=== PATIENT | female | born 1940 | race Caucasian/White ===

== ENCOUNTER 2016-09-13 13:50 | Inpatient (IN) | payer OTHER, MEDICARE ==
[2016-09-13] VITALS (7 sets, daily range): BP systolic 139–191; BP diastolic 82–97; PULSE 82–103; RESP 18–20; TEMP 96–97.1; O2SAT 95–100
[~2016-09-13] VITALS: Ht 149.9 cm; Wt 49.7 kg
[~2016-09-13 13:50] MED LIST: ASPI81TA45 PO; DICY20TA10 PO; HYDR-3533 PO; LABE100T2 PO; LOPE2 PO; LOVA40TA PO
[2016-09-13] MEDS ORDERED: SODIUM CHLOR 0.9% 1000 ML INJ 1,000 ML IV ONE (14:15)
[2016-09-13] MEDS ORDERED: MORPHINE SULFATE 4 MG/ML INJ IV PUSH ONE (14:15)
[2016-09-13] MEDS ORDERED: SODIUM CHLORIDE 0.9% FLUSH 5 ML FLUSH IV FLUSH PRN (14:15)
[2016-09-13 14:38] LABS: AUTOMATED NEUTROPHIL # 12.4 TH/MM3 (1.8-7.7); BASOPHIL # 0.1 TH/MM3 (0-0.2); BASOPHIL % 0.6 % (0.0-2.0); EOSINOPHIL % 0.2 % (0.0-4.0); HEMATOCRIT 44.3 % (35.0-46.0); LYMPH % 10.3 % (9.0-44.0); LYMPHOCYTE # 1.5 TH/MM3 (1.0-4.8); MEAN CELL VOLUME 94.9 FL (80.0-100.0); MEAN CORPUSCULAR HGB CONC 33.7 % (32.0-36.0); MONO % 4.4 % (0.0-8.0); NEUT % 84.5 % (16.0-70.0); PLATELET COUNT 186 TH/MM3 (150-450); RED BLOOD COUNT 4.67 MIL/MM3 (4.00-5.30); RED CELL DISTRIBUTION WIDTH 13.6 % (11.6-17.2); WHITE BLOOD COUNT 14.6 TH/MM3 (4.0-11.0)
[2016-09-13 14:50] LABS: APTT (PATIENT) 26.4 SEC (24.3-30.1); PROTHROMBIN TIME - PATIENT 11.4 SEC (9.8-11.6)
[2016-09-13 15:02] LABS: HEMO FLAGS DIFF FINAL
--- NOTE | 2016-09-13 15:08 | RADRPT ---
EXAM DATE/TIME: 09/13/2016 14:29 [facility] COMPARISON: CT BRAIN W/O CONTRAST, August 06, 2015, 13:12. INDICATIONS : Altered mental status. Fell last night. RADIATION DOSE: 57.49 CTDIvol (mGy) MEDICAL HISTORY : Hypertension. Cardiovascular disease SURGICAL HISTORY : Appendectomy. Hysterectomy. ENCOUNTER: Initial ACUITY: 1 day PAIN SCALE: 0/10 LOCATION: cranial TECHNIQUE: Multiple contiguous axial images were obtained of the head. Using automated exposure control and adj ustment of the mA and/or kV according to patient size, radiation dose was kept as low as reasonably a chievable to obtain optimal diagnostic quality images. DICOM format image data is available electro nically for review and comparison. FINDINGS: CEREBRUM: There is generalized cerebral atrophy. Ventricles are normal in size. There is moderate to severe per iventricular white matter low attenuation. There are 2 old lacune seen in the left thalamus. One of t hese is new since the prior examination. No midline shift, mass lesion, hemorrhage or acute infarcti on. No extra-axial fluid collections are seen. POSTERIOR FOSSA: The cerebellum and brainstem demonstrate no acute finding. There is a focal area of low density in th e right cerebellum likely representing old area of ischemia. The 4th ventricle is midline. The cere bellopontine angle is unremarkable. EXTRACRANIAL: Visualized sinuses are clear. SKULL: The calvaria is intact. No evidence of skull fracture. CONCLUSION: 1. No acute intracranial abnormality is identified. 2. Chronic changes include generalized atrophy and moderate to severe periventricular white matter lo w attenuation characteristic of chronic microvascular ischemia. There are old lacunes in the left eliud lamus, one of which is new since the July 2015 exam. Juan R Delatorre MD on September 13, 2016 at 15:03 Board Certified Radiologist. This report was verified electronically.
[2016-09-13 15:26] LABS: ANION GAP 10 MEQ/L (5-15); BICARBONATE 30.4 MEQ/L (21.0-32.0); BLOOD UREA NITROGEN 18 MG/DL (7-18); CHLORIDE 99 MEQ/L (98-107); CREATINE KINASE 66 U/L (26-192); GLOMERULAR FILTRATION RATE 54 ML/MIN (>89); SODIUM (NA) 139 MEQ/L (136-145)
[2016-09-13 15:28] LABS: POTASSIUM 1.9 MEQ/L (3.5-5.1)
[2016-09-13 15:29] LABS: AMPHETAMINE, URINE NEG (NEG); BARBITURATES, URINE NEG (NEG); BLOOD, URINE NEG (NEG); GLUCOSE,URINE NEG (NEG); KETONE, URINE NEG (NEG); PH, URINE 5.5 (5.0-8.5)
[2016-09-13] MEDS ORDERED: POTASSIUM CHLORIDE 10 MEQ CONTROLLED RELEASE TAB PO ONE (15:30)
[2016-09-13 15:33] LABS: COCAINE, URINE NEG (NEG)
--- NOTE | 2016-09-13 15:34 | PD ---
HPI Chief Complaint: General Weakness Time Seen by Provider: 14:08 Travel History International Travel<30 days: No Contact w/Intl Traveler<30days: No Traveled to known affect area: No History of Present Illness HPI Patient is a 75-year-old male comes in with her due to weakness. She did fall and is complaining of right shoulder pain. Otherwise, she has no complaints. She is confused, and cannot provide much history. Her states that for several months she seems to be getting more and more forgetful. He says that she has become so weak that she can't get out of bed. He says that she says she fell at the bottom of the stairs last night, but he did not witness it as he was out walking the dog. She has not been complaining of anything specific at home other than the shoulder pain after she fell last night. PFSH Past Medical History Hx Anticoagulant Therapy: Yes Cardiovascular Problems: Yes (CAD WITH STENT PLACEMENT) High Cholesterol: Yes Coronary Artery Disease: Yes Diminished Hearing: No GERD: Yes Hypertension: Yes Immunizations Current: Yes Menopausal: Yes Past Surgical History Appendectomy: Yes Coronary Stent: Yes Gynecologic Surgery: Yes (bladder repair) Hysterectomy: Yes Social History Alcohol Use: Yes Tobacco Use: Yes (1 PPD) Substance Use: No Allergies-Medications (Allergen,Severity, Reaction): Coded Allergies: No Known Allergies (Verified , 09/13/16) Reported Meds & Prescriptions Reported Meds & Active Scripts Active No Active Prescriptions or Reported Medications Review of Systems ROS Limitations: Altered Mental Status Physical Exam Narrative GENERAL: Awake and alert, in no acute distress. Smells of urine. SKIN: Focused skin assessment warm/dry. HEAD: Atraumatic. Normocephalic. EYES: Pupils equal and round. No scleral icterus. Extraocular movements intact. ENT: Mucous membranes pink and moist. NECK: Trachea midline. No JVD. CARDIOVASCULAR: Regular rate and rhythm. No murmur appreciated. RESPIRATORY: No accessory muscle use. Clear to auscultation. Breath sounds equal bilaterally. GASTROINTESTINAL: Abdomen soft, non-tender, nondistended. MUSCULOSKELETAL: No clubbing. No cyanosis. No edema. Ecchymosis to the right shoulder. Pain with movement. Tender to palpation of the shoulder and humerus. Radial pulse intact. NEUROLOGICAL: Awake and alert, oriented to person and place. She believes it is 1980. No obvious cranial nerve deficits. Motor grossly within normal limits. Normal speech. PSYCHIATRIC: Appropriate mood and affect; insight and judgment normal. Data Data Last Documented VS Vital Signs Date Time Temp Pulse Resp B/P Pulse Ox O2 Delivery O2 Flow Rate FiO2 09/13/16 16:50 97 20 191/97 97 09/13/16 13:56 97.1 Orders Electrocardiogram (09/13/16 14:15) Basic Metabolic Panel (Bmp) (09/13/16 14:15) Complete Blood Count With Diff (09/13/16 14:15) Creatine Kinase (Cpk) (09/13/16 14:15) Prothrombin Time / Inr (Pt) (09/13/16 14:15) Act Partial Throm Time (Ptt) (09/13/16 14:15) Troponin I (09/13/16 14:15) Thyroid Stimulating Hormone (09/13/16 14:15) Urinalysis - C+S If Indicated (09/13/16 14:15) Ua Includes Microscopic (09/13/16 14:15) Chest, Pa & Lat (09/13/16 14:15) Ct Brain W/O Iv Contrast(Rout) (09/13/16 14:15) Blood Glucose (09/13/16 14:15) Ecg Monitoring (09/13/16 14:15) Iv Access Insert/Monitor (09/13/16 14:15) Cath For Specimen (09/13/16 14:15) Oximetry (09/13/16 14:15) Sodium Chloride 0.9% Flush (Ns Flush) (09/13/16 14:15) Drug Screen, Random Urine (09/13/16 14:15) Alcohol (Ethanol) (09/13/16 14:15) Humerus (Min 2vws) (09/13/16 ) Sodium Chlor 0.9% 1000 Ml Inj (Ns 1000 M (09/13/16 14:15) Morphine Inj (Morphine Inj) (09/13/16 14:15) Potassium Chlor 10 Meq Premix (Kcl 10 Me (09/13/16 15:30) Potassium Chloride (Kcl) (09/13/16 15:30) Potassium Chloride (Kcl) (09/13/16 15:45) Urine Culture (09/13/16 15:00) Ceftriaxone Inj (Rocephin Inj) (09/13/16 15:45) Shoulder, Limited(2vws) (09/13/16 ) Support Splint (09/13/16 16:25) Admit Order (Ed Use Only) (09/13/16 ) Labs Laboratory Tests Test 09/13/16 09/13/16 14:30 15:00 White Blood Count 14.6 TH/MM3 Red Blood Count 4.67 MIL/MM3 Hemoglobin 14.9 GM/DL Hematocrit 44.3 % Mean Corpuscular Volume 94.9 FL Mean Corpuscular Hemoglobin 32.0 PG Mean Corpuscular Hemoglobin 33.7 % Concent Red Cell Distribution Width 13.6 % Platelet Count 186 TH/MM3 Mean Platelet Volume 9.1 FL Neutrophils (%) (Auto) 84.5 % Lymphocytes (%) (Auto) 10.3 % Monocytes (%) (Auto) 4.4 % Eosinophils (%) (Auto) 0.2 % Basophils (%) (Auto) 0.6 % Neutrophils # (Auto) 12.4 TH/MM3 Lymphocytes # (Auto) 1.5 TH/MM3 Monocytes # (Auto) 0.6 TH/MM3 Eosinophils # (Auto) 0.0 TH/MM3 Basophils # (Auto) 0.1 TH/MM3 CBC Comment DIFF FINAL Differential Comment Prothrombin Time 11.4 SEC Prothromb Time International 1.0 RATIO Ratio Activated Partial 26.4 SEC Thromboplast Time Sodium Level 139 MEQ/L Potassium Level 1.9 MEQ/L Chloride Level 99 MEQ/L Carbon Dioxide Level 30.4 MEQ/L Anion Gap 10 MEQ/L Blood Urea Nitrogen 18 MG/DL Creatinine 1.00 MG/DL Estimat Glomerular Filtration 54 ML/MIN Rate Random Glucose 145 MG/DL Calcium Level 8.6 MG/DL Total Creatine Kinase 66 U/L Troponin I LESS THAN 0.02 NG/ML Thyroid Stimulating Hormone 2.060 uIU/ML 3rd Gen Ethyl Alcohol Level LESS THAN 3 MG/DL Urine Color YELLOW Urine Turbidity CLEAR Urine pH 5.5 Urine Specific [place] 1.016 Urine Protein NEG mg/dL Urine Glucose (UA) NEG mg/dL Urine Ketones NEG mg/dL Urine Occult Blood NEG Urine Nitrite POS Urine Bilirubin NEG Urine Leukocyte Esterase NEG Urine RBC 0-3 /hpf Urine WBC 6-8 /hpf Urine Squamous Epithelial 0-5 /hpf Cells Urine Bacteria MANY /hpf Urine Hyaline Casts 3-5 /lpf Microscopic Urinalysis Comment CATH-CULTURE IND Urine Opiates Screen NEG Urine Barbiturates Screen NEG Urine Amphetamines Screen NEG Urine Benzodiazepines Screen NEG Urine Cocaine Screen NEG Urine Cannabinoids Screen NEG MDM Medical Decision Making Medical Screen Exam Complete: Yes Emergency Medical Condition: Yes Medical Record Reviewed: Yes Interpretation(s) ECG shows sinus rhythm at 89, no ST elevation or depression, T-wave inversion in lead V2, occasional PVCs. Differential Diagnosis UTI versus electrolyte abnormality versus dementia versus infection versus shoulder fracture Narrative Course Patient is a 75-year-old female who comes in due to weakness and worsening mental status. Exam shows ecchymosis and pain to the right shoulder. IV established, labs sent. Labs show a white blood cell count of 14.6. Potassium is 1.9. Potassium was supplemented. Urinalysis is positive for UTI. She is given Rocephin. Shoulder x-ray shows a comminuted fracture of the right humeral head. I spoke with Dr. Moore of orthopedics regarding this, he suggests sling and swath and Dr. Dyer will see her in the morning. Patient will be admitted for further management. Diagnosis Primary Impression: Hypokalemia Additional Impressions: Humeral fracture Qualified Code: S42.291A - Other closed displaced fracture of proximal end of right humerus, initial encounter UTI (urinary tract infection) Qualified Code: N30.00 - Acute cystitis without hematuria Admitting Information Admitting Physician Requests: Admit Scripts No Active Prescriptions or Reported Meds Caryn Rodgers MD Sep 13, 2016 15:34
[2016-09-13 15:36] LABS: NITRITE,URINE POS (NEG)
[2016-09-13 15:38] LABS: URINE COLOR YELLOW (YELLW/STRAW)
[2016-09-13 15:39] LABS: BACTERIA, URINE MANY /hpf; COMMENT (UR) CATH-CULTURE IND; CULTURE IF INDICATED CATH CULTURE IND; RBC, URINE 0-3 /hpf (0-3); SQUAMOUS EPITHELIAL CELL URINE 0-5 /hpf (0-5)
[2016-09-13] MEDS: POTASSIUM CHLOR 10 MEQ PREMIX 100 ML IV SCH ×3 (15:40→18:30)
[2016-09-13] MEDS ORDERED: cefTRIAXone INJ 1,000 MG in SODIUM CHLORIDE 0.9% INJ 100 ML IV ONE (15:45)
[2016-09-13] MEDS ORDERED: POTASSIUM CHLORIDE 20 MEQ CONTROLLED RELEASE TAB PO ONE (15:45)
--- NOTE | 2016-09-13 16:31 | RADRPT ---
EXAM DATE/TIME: 09/13/2016 15:55 [facility] COMPARISON: HUMERUS RIGHT (MIN 2VWS), September 13, 2016, 15:58. INDICATIONS : Short of breath. MEDICAL HISTORY : Hypertension. Cardiovascular disease. Smoker. SURGICAL HISTORY : Appendectomy. Hysterectomy. ENCOUNTER: Initial ACUITY: 1 week PAIN SCORE: 0/10 LOCATION: Bilateral chest FINDINGS: Frontal and lateral views of the chest demonstrate a normal-sized cardiac silhouette with calcificati on of aorta. No effusion, consolidation, or pneumothorax is identified. There is a fracture of the ri ght proximal humerus in the surgical neck region. CONCLUSION: 1. No acute cardiopulmonary abnormality is identified. 2. There is an acute right proximal humerus fracture. Please refer to humerus x-ray report for furthe r description. Juan R Delatorre MD on September 13, 2016 at 16:29 Board Certified Radiologist. This report was verified electronically.
--- NOTE | 2016-09-13 16:50 | RADRPT ---
EXAM DATE/TIME: 09/13/2016 15:58 [facility] COMPARISON: No previous studies available for comparison. INDICATIONS : Right humerus pain after fall one week ago. MEDICAL HISTORY : None. SURGICAL HISTORY : None. ENCOUNTER: Initial ACUITY: 1 week PAIN SCORE: 10/10 LOCATION: Right proximal humerus FINDINGS: As the comminuted fracture of the surgical neck of the humerus. The greater tuberosity is separate f ragment. The aorta acromium are intact. CONCLUSION: Committed fracture of the humeral head. Tevin Taylor MD FACR on September 13, 2016 at 16:48 Board Certified Radiologist. This report was verified electronically.
--- NOTE | 2016-09-13 16:51 | RADRPT ---
EXAM DATE/TIME: 09/13/2016 16:03 [facility] COMPARISON: No previous studies available for comparison. INDICATIONS : Right shoulder pain after fall one week ago. MEDICAL HISTORY : None. SURGICAL HISTORY : None. ENCOUNTER: Initial ACUITY: 1 week PAIN SCORE: 10/10 LOCATION: Right proximal shoulder FINDINGS: Again seen is the comminuted fracture the humeral head. Glenoid and acromion are intact. Lung apex is clear. CONCLUSION: Continued fracture humeral head. Tevin Taylor MD FACR on September 13, 2016 at 16:48 Board Certified Radiologist. This report was verified electronically.
[2016-09-13] MEDS ORDERED: ACETAMINOPHEN 325 MG TAB PO PRN (17:30)
--- NOTE | 2016-09-13 17:42 | HHI.HP ---
[facility] Tim Leonard MD Admission Diagnosis Hypokalemia, UTI, AMS, humerus fracture Diagnoses: Chief Complaint: weakness Travel History International Travel<30 Days: No Contact w/Intl Traveler <30 Da: No Traveled to Known Affected Are: No Sepsis Criteria SIRS Criteria (2 or more): Heart rate over 90, WBC > 70262, < 4000 or > 10% bands Criteria Outcome: Meets sepsis criteria History of Present Illness Sent is a 75-year-old female with minimal past medical history although she admits having a cardiac event at some point in having a stent. She does not follow up with any doctors in fact has had several points with doctors which she has canceled in the last 6 weeks. Patient has come in with increased weakness and fall at home which she sustained a right humeral fracture. She is more confused and the significant other who lives with her sister she's had urinary incontinence and chills as well as fecal incontinence over the last 2 weeks. The patient has not had any recent travel but has had difficulty sleeping. She presented to the emergency room with evidence of urinary tract infection, leukocytosis and tachycardia and meets sepsis criteria. Patient also has hypokalemia of 1.9. She has not been eating and has had poor appetite over the last several weeks as well. Patient admitted to the hospital for further evaluation and treatment Review of Systems Constitutional: DENIES: Diaphoretic episodes, Fatigue, Fever, Weight gain, Weight loss, Chills, Dizziness, Change in appetite, Night Sweats Endocrine: DENIES: Abnorml menstrual pattern, Heat/cold intolerance, Polydipsia , Polyuria, Polyphagia Eyes: DENIES: Blurred vision, Diplopia, Eye inflammation, Eye pain, Vision loss , Photosensitivity, Double Vision Ears, nose, mouth, throat: DENIES: Tinnitus, Hearing loss, Vertigo, Nasal discharge, Oral lesions, Throat pain, Hoarseness, Ear Pain, Running Nose, Epistaxis, Sinus Pain, Toothache, Odynophagia Respiratory: DENIES: Apneas, Cough, Snoring, Wheezing, Hemoptysis, Sputum production, Shortness of breath Cardiovascular: DENIES: Chest pain, Palpitations, Syncope, Dyspnea on Exertion , PND, Lower Extremity Edema, Orthopnea, Claudication Gastrointestinal: COMPLAINS OF: Diarrhea, DENIES: Abdominal pain, Black stools , Bloody stools, Constipation, Nausea, Vomiting, Difficulty Swallowing, Anorexia Genitourinary: COMPLAINS OF: Urinary frequency, Urinary incontinence, DENIES: Abnormal vaginal bleeding, Dysmenorrhea, Dyspareunia, Sexual dysfunction, Urgency, Hematuria, Dysuria, Nocturia, Vaginal discharge Musculoskeletal: COMPLAINS OF: Joint pain (right ), DENIES: Muscle aches, Stiffness, Joint Swelling, Back pain, Neck pain Integumentary: DENIES: Abnormal pigmentation, Pruritus, Rash, Nail changes, Breast masses, Breast skin changes, Nipple discharge Hematologic/lymphatic: DENIES: Bruising, Lymphadenopathy Immunologic/allergic: DENIES: Eczema, Urticaria Neurologic: DENIES: Abnormal gait, Headache, Localized weakness, Paresthesias, Seizures, Speech Problems, Tremor, Poor Balance Psychiatric: COMPLAINS OF: Confusion, DENIES: Anxiety, Mood changes, Depression, Hallucinations, Agitation, Suicidal Ideation, Homicidal Ideation, Delusions Except as stated in HPI: all other systems reviewed are Neg Past Family Social History Past Medical History CAD Past Surgical History stent Reported Medications none Allergies: Coded Allergies: No Known Allergies (Verified , 09/13/16) Active Ordered Medications reviewed in the EMR Family History mom and dad of old age Social History lives with SO 1 ppd tobacco EtOH daily Physical Exam Vital Signs Vital Signs Date Time Temp Pulse Resp B/P Pulse Ox O2 Delivery O2 Flow Rate FiO2 09/13/16 16:50 97 20 191/97 97 09/13/16 15:35 89 20 174/84 100 09/13/16 15:03 96 09/13/16 13:56 97.1 103 18 146/82 96 Physical Exam GENERAL: This is a well-nourished, well-developed patient, in no apparent distress. SKIN: No rashes, ecchymoses or lesions. Cool and dry. HEAD: Atraumatic. Normocephalic. No temporal or scalp tenderness. EYES: Pupils equal round and reactive. Extraocular motions intact. No scleral icterus. No injection or drainage. ENT: Nose without bleeding, purulent drainage or septal hematoma. Throat without erythema, tonsillar hypertrophy or exudate. Uvula midline. Airway patent. NECK: Trachea midline. No JVD or lymphadenopathy. Supple, nontender, no meningeal signs. CARDIOVASCULAR: Regular rate and rhythm without murmurs, gallops, or rubs. RESPIRATORY: Clear to auscultation. Breath sounds equal bilaterally. No wheezes , rales, or rhonchi. GASTROINTESTINAL: Abdomen soft, non-tender, nondistended. No hepato-splenomegaly , or palpable masses. No guarding. MUSCULOSKELETAL: Extremities without clubbing, cyanosis, or edema. No joint tenderness, effusion, or edema noted. No calf tenderness. Negative Homans sign bilaterally. NEUROLOGICAL: Awake and alert. Cranial nerves II through XII intact. Motor and sensory grossly within normal limits. Five out of 5 muscle strength in all muscle groups. Normal speech. Laboratory Laboratory Tests Test 09/13/16 09/13/16 14:30 15:00 White Blood Count 14.6 Red Blood Count 4.67 Hemoglobin 14.9 Hematocrit 44.3 Mean Corpuscular Volume 94.9 Mean Corpuscular Hemoglobin 32.0 Mean Corpuscular Hemoglobin 33.7 Concent Red Cell Distribution Width 13.6 Platelet Count 186 Mean Platelet Volume 9.1 Neutrophils (%) (Auto) 84.5 Lymphocytes (%) (Auto) 10.3 Monocytes (%) (Auto) 4.4 Eosinophils (%) (Auto) 0.2 Basophils (%) (Auto) 0.6 Neutrophils # (Auto) 12.4 Lymphocytes # (Auto) 1.5 Monocytes # (Auto) 0.6 Eosinophils # (Auto) 0.0 Basophils # (Auto) 0.1 CBC Comment DIFF FINAL Differential Comment Prothrombin Time 11.4 Prothromb Time International 1.0 Ratio Activated Partial 26.4 Thromboplast Time Sodium Level 139 Potassium Level 1.9 Chloride Level 99 Carbon Dioxide Level 30.4 Anion Gap 10 Blood Urea Nitrogen 18 Creatinine 1.00 Estimat Glomerular Filtration 54 Rate Random Glucose 145 Calcium Level 8.6 Total Creatine Kinase 66 Troponin I LESS THAN 0.02 Thyroid Stimulating Hormone 2.060 3rd Gen Ethyl Alcohol Level LESS THAN 3 Urine Color YELLOW Urine Turbidity CLEAR Urine pH 5.5 Urine Specific [place] 1.016 Urine Protein NEG Urine Glucose (UA) NEG Urine Ketones NEG Urine Occult Blood NEG Urine Nitrite POS Urine Bilirubin NEG Urine Leukocyte Esterase NEG Urine RBC 0-3 Urine WBC 6-8 Urine Squamous Epithelial 0-5 Cells Urine Bacteria MANY Urine Hyaline Casts 3-5 Microscopic Urinalysis Comment CATH-CULTURE IND Urine Opiates Screen NEG Urine Barbiturates Screen NEG Urine Amphetamines Screen NEG Urine Benzodiazepines Screen NEG Urine Cocaine Screen NEG Urine Cannabinoids Screen NEG Date/Time Procedure Status Source Growth 09/13/16 15:00 Urine Culture Received Urine Catheterized Urine Pending Result Diagram: 09/13/16 1430 09/13/16 1430 Assessment and Plan Problem List: (1) Hypokalemia ICD Code: E87.6 Status: Acute Plan: add mag replace, follow trend 60 meq in ER (2) Diarrhea ICD Code: R19.7 Status: Acute Plan: loose stools Work up in progress (3) Humeral fracture ICD Code: S42.309A Status: Acute Plan: sling per ortho, will see in am (4) UTI (urinary tract infection) ICD Code: N39.0 Status: Acute Plan: Sepsis (hr and leukocytosis) Rocephin empiric, follow cultures (5) Weakness ICD Code: R53.1 Status: Acute (6) HTN (hypertension) ICD Code: I10 Status: Acute Plan: clonidine prn may need chronic therapy Physician Certification 2 Midnight Certification Type: Admission for Inpatient Services Order for Inpatient Services The services are ordered in accordance with Medicare regulations or non- Medicare payer requirements, as applicable. In the case of services not specified as inpatient-only, they are appropriately provided as inpatient services in accordance with the 2-midnight benchmark. Estimated LOS (days): 3 3 days is the estimated time the patient will need to remain in the hospital, assuming treatment plan goals are met and no additional complications. Post-Hospital Plan: Deann Chang MD Sep 13, 2016 17:41
[2016-09-13] MEDS: cloNIDine HCL 0.1 MG TAB PO PRN (18:05)
[2016-09-13] MEDS ORDERED: MORPHINE SULFATE 4 MG/ML INJ IV PUSH PRN (18:30)
[2016-09-13] MEDS: SODIUM CHLOR 0.9% 1000 ML INJ 1,000 ML IV SCH (18:31)
[2016-09-13] MEDS: ENOXAPARIN SODIUM 40 MG/0.4 ML SYRINGE SQ SCH (18:31)
[2016-09-13 22:23] LABS: BICARBONATE 27.7 MEQ/L (21.0-32.0); MAGNESIUM 1.8 MG/DL (1.5-2.5)
[2016-09-13 22:25] LABS: POTASSIUM 2.4 MEQ/L (3.5-5.1)
[2016-09-13] MEDS ORDERED: MAGNESIUM SULFATE 1 GM PREMIX 100 ML IV SCH (22:45)
[2016-09-13] MEDS ORDERED: POTASSIUM CHLORIDE 25 MEQ EFFERVESCENT TAB PO ONE (22:45)
[2016-09-13 22:47] LABS: CALCIUM-PROTEIN CORRECTED 8.5 MG/DL (8.5-10.1)
[2016-09-13] MEDS: POTASSIUM CHLOR 20 MEQ PREMIX 100 ML IV SCH (23:50)
[2016-09-14] VITALS: BP 150/88; PULSE 85; RESP 20; TEMP 97.5; O2SAT 92
[2016-09-14] MEDS: SODIUM CHLOR 0.9% 1000 ML INJ 1,000 ML IV SCH ×3 (04:30→23:19)
[2016-09-14] MEDS: POTASSIUM CHLOR 20 MEQ PREMIX 100 ML IV SCH (04:30)
[2016-09-14 04:34] VITALS: BP 187/106; PULSE 87; RESP 18; TEMP 98.4; O2SAT 94
[2016-09-14] MEDS: cloNIDine HCL 0.1 MG TAB PO PRN ×2 (04:40→20:26)
[2016-09-14 05:58] LABS: AUTOMATED NEUTROPHIL # 8.5 TH/MM3 (1.8-7.7); BASOPHIL % 0.4 % (0.0-2.0); EOSINOPHIL # 0.1 TH/MM3 (0-0.4); EOSINOPHIL % 1.3 % (0.0-4.0); HEMATOCRIT 35.4 % (35.0-46.0); LYMPH % 14.1 % (9.0-44.0); LYMPHOCYTE # 1.5 TH/MM3 (1.0-4.8); MEAN CORPUSCULAR HEMOGLOBIN 31.4 PG (27.0-34.0); MONO % 3.3 % (0.0-8.0); NEUT % 80.9 % (16.0-70.0); PLATELET COUNT 127 TH/MM3 (150-450); RED BLOOD COUNT 3.73 MIL/MM3 (4.00-5.30); RED CELL DISTRIBUTION WIDTH 13.3 % (11.6-17.2); WHITE BLOOD COUNT 10.4 TH/MM3 (4.0-11.0)
[2016-09-14 06:08] LABS: HEMO FLAGS DIFF FINAL
[2016-09-14 06:12] LABS: BICARBONATE 28.1 MEQ/L (21.0-32.0); POTASSIUM 3.9 MEQ/L (3.5-5.1)
[2016-09-14 06:26] LABS: CALCIUM-PROTEIN CORRECTED 8.6 MG/DL (8.5-10.1)
[2016-09-14 08:42] VITALS: BP 158/88; PULSE 74; RESP 19; TEMP 96.9; O2SAT 96
[2016-09-14] MEDS: PANTOPRAZOLE SOD 40 MG DELAYED RELEASE TAB PO SCH (09:23)
--- NOTE | 2016-09-14 11:59 | HHI.PR ---
Subjective Remarks Pt having pain in her right upper extremity. otherwise no nausea/vomiting/cp/ sob. Objective Vitals Vital Signs Date Time Temp Pulse Resp B/P Pulse Ox O2 Delivery O2 Flow Rate FiO2 09/14/16 08:42 96.9 74 19 158/88 96 09/14/16 04:34 98.4 87 18 187/106 94 09/14/16 00:00 97.5 85 20 150/88 92 09/13/16 22:00 89 09/13/16 20:00 96.0 82 20 139/89 96 09/13/16 18:15 96.8 93 20 95 09/13/16 16:50 97 20 191/97 97 09/13/16 15:35 89 20 174/84 100 09/13/16 15:03 96 09/13/16 13:56 97.1 103 18 146/82 96 I/O 09/13/16 09/13/16 09/13/16 09/14/16 09/14/16 09/14/16 06:59 14:59 22:59 06:59 14:59 22:59 Intake Total 60 ml 1260 ml Output Total 150 ml Balance 60 ml 1110 ml Intake Oral 60 ml 60 ml IV Total 1200 ml Output Urine Total 150 ml # Voids 0 1 # Bowel Movements 0 0 Result Diagram: 09/14/16 0540 09/14/16 0540 Imaging Last Impressions Head CT 09/13/165 Signed Impressions: Service Date/Time: Tuesday, September 13, 2016 14:29 - CONCLUSION: 1. No acute intracranial abnormality is identified. 2. Chronic changes include generalized atrophy and moderate to severe periventricular white matter low attenuation characteristic of chronic microvascular ischemia. There are old lacunes in the left thalamus, one of which is new since the July 2015 exam. Juan R Delatorre MD Chest X-Ray 09/13/16 1415 Signed Impressions: Service Date/Time: Tuesday, September 13, 2016 15:55 - CONCLUSION: 1. No acute cardiopulmonary abnormality is identified. 2. There is an acute right proximal humerus fracture. Please refer to humerus x-ray report for further description. Juan R Delatorre MD Shoulder X-Ray 09/13/16 0000 Signed Impressions: Service Date/Time: Tuesday, September 13, 2016 16:03 - CONCLUSION: Continued fracture humeral head. Tevin Taylor MD FACR Humerus X-Ray 09/13/16 0000 Signed Impressions: Service Date/Time: Tuesday, September 13, 2016 15:58 - CONCLUSION: Committed fracture of the humeral head. Tevin Taylor MD FACR Objective Remarks GENERAL: This is a well-nourished, well-developed patient, in no apparent distress. EYES: Extraocular motions intact. No scleral icterus. No injection or drainage. ENT: Nose without drainage. Airway patent. NECK: Trachea midline. CARDIOVASCULAR: Regular rate and rhythm without murmurs RESPIRATORY: Clear to auscultation. No wheezes GASTROINTESTINAL: Abdomen soft, non-tender, nondistended.No guarding. MUSCULOSKELETAL: Extremities without edema. right arm in slig. able to move fingers, cap refill <2sec NEUROLOGICAL: Awake and alert. Cranial nerves II through XII intact. Normal speech. A/P Problem List: (1) Hypokalemia ICD Code: E87.6 Status: Acute (2) Diarrhea ICD Code: R19.7 Status: Acute (3) Humeral fracture ICD Code: S42.309A Status: Acute (4) UTI (urinary tract infection) ICD Code: N39.0 Status: Acute (5) Weakness ICD Code: R53.1 Status: Acute (6) HTN (hypertension) ICD Code: I10 Status: Acute Assessment and Plan (1) Hypokalemia resolved. mag normal. s/p60 meq in ER (2) Diarrhea loose stools Work up in progress (3) Humeral fracture sling per ortho,discussed w Dr. Dos Santos, he will evaluate the patient later today (4) UTI (urinary tract infection) Sepsis (hr and leukocytosis) Rocephin empiric, follow cultures which so far are pending (5) Weakness PT eval in place (6) HTN (hypertension) clonidine prn may need chronic therapy Discharge Planning f/u urine cx awaiting final recs from ortho. pain mgt f/u stool studies Problem Qualifiers (1) Humeral fracture: Qualified Code: S42.291A - Other closed displaced fracture of proximal end of right humerus, initial encounter (2) UTI (urinary tract infection): Qualified Code: N30.00 - Acute cystitis without hematuria Marianne Kurtz MD Sep 14, 2016 11:59
[2016-09-14] MEDS ORDERED: ACETAMINOPHEN/HYDROcodone 325 MG/5 MG TAB PO PRN (12:15)
[2016-09-14 13:16] VITALS: BP 179/103; PULSE 83; RESP 19; TEMP 97.8; O2SAT 96
--- NOTE | 2016-09-14 13:21 | PD.CONS ---
cc: Saw Dos Santos Jr., MD HPI Service Orthopedic Surgeons Consult Requested By Primary Care Physician Tim Leonard MD Admission Diagnosis Hypokalemia, UTI, AMS, humerus fracture Diagnoses: (1) Hypokalemia (2) Diarrhea (3) Humeral fracture (4) UTI (urinary tract infection) (5) Weakness (6) HTN (hypertension) Chief Complaint: Right shoulder pain History of Present Illness 75-year-old female with past medical history of cardiac disease comes in complaining of right shoulder playing after a fall. Prior to the fall she has felt increasingly weak. X-rays examination reveal a displaced proximal humerus fracture of the surgical neck. Denies any head injuries. Denies loss of consciousness. Patient currently in a sling. Currently patient's pain is sharp, 8 out of 10, exacerbated by any range of motion, relieved at rest and with IV pain medicine, pain is sharp nonradiating, not associated with any paresthesia and numbness to the right upper extremity. The patient has not had any recent travel but has had difficulty sleeping. She presented to the emergency room with evidence of urinary tract infection, leukocytosis and tachycardia and meets sepsis criteria. ROS - General Review of Systems Constitutional: DENIES: Diaphoretic episodes, Fatigue, Fever, Weight gain, Weight loss, Chills, Dizziness, Change in appetite, Night Sweats Endocrine: DENIES: Abnorml menstrual pattern, Heat/cold intolerance, Polydipsia , Polyuria, Polyphagia Eyes: DENIES: Blurred vision, Diplopia, Eye inflammation, Eye pain, Vision loss , Photosensitivity, Double Vision Ears, nose, mouth, throat: DENIES: Tinnitus, Hearing loss, Vertigo, Nasal discharge, Oral lesions, Throat pain, Hoarseness, Ear Pain, Running Nose, Epistaxis, Sinus Pain, Toothache, Odynophagia Respiratory: DENIES: Apneas, Cough, Snoring, Wheezing, Hemoptysis, Sputum production, Shortness of breath Cardiovascular: DENIES: Chest pain, Palpitations, Syncope, Dyspnea on Exertion , PND, Lower Extremity Edema, Orthopnea, Claudication Gastrointestinal: COMPLAINS OF: Diarrhea, DENIES: Abdominal pain, Black stools , Bloody stools, Constipation, Nausea, Vomiting, Difficulty Swallowing, Anorexia Genitourinary: COMPLAINS OF: Urinary frequency, Urinary incontinence, DENIES: Abnormal vaginal bleeding, Dysmenorrhea, Dyspareunia, Sexual dysfunction, Urgency, Hematuria, Dysuria, Nocturia, Vaginal discharge Musculoskeletal: COMPLAINS OF: Joint pain (right ), DENIES: Muscle aches, Stiffness, Joint Swelling, Back pain, Neck pain Integumentary: DENIES: Abnormal pigmentation, Pruritus, Rash, Nail changes, Breast masses, Breast skin changes, Nipple discharge Hematologic/lymphatic: DENIES: Bruising, Lymphadenopathy Immunologic/allergic: DENIES: Eczema, Urticaria Neurologic: DENIES: Abnormal gait, Headache, Localized weakness, Paresthesias, Seizures, Speech Problems, Tremor, Poor Balance Psychiatric: COMPLAINS OF: Confusion, DENIES: Anxiety, Mood changes, Depression, Hallucinations, Agitation, Suicidal Ideation, Homicidal Ideation, Delusions Except as stated in HPI: all other systems reviewed are Neg PFSH Past Family Social History Past Medical History CAD Past Surgical History stent Reported Medications none Allergies: Coded Allergies: No Known Allergies (Verified , 09/13/16) Active Ordered Medications reviewed in the EMR Family History mom and dad of old age Social History lives with SO 1 ppd tobacco EtOH daily Past Family Social History Past Medical History CAD Past Surgical History stent Allergies: Coded Allergies: No Known Allergies (Verified , 09/13/16) Active Ordered Medications Current Medications Medications (Trade) Dose Ordered Sig/Tania Route Start Time Stop Time Status Last Admin IV Flush 2 ml 2 ml UNSCH PRN IV FLUSH 09/13/16 14:15 (NS 1000 ml Inj) 1,000 ml @ 100 mls/hr Q10H IV 09/13/16 17:19 09/14/16 10:44 (Tylenol) 650 mg Q4H PRN PO 09/13/16 17:30 (Catapres) 0.1 mg Q6H PRN PO 09/13/16 17:45 09/14/16 04:40 (Protonix) 40 mg DAILY PO 09/14/16 09:00 09/14/16 09:23 Enoxaparin Sodium 40 mg 40 mg Q24H SQ 09/13/16 18:00 09/13/16 18:31 (Rocephin Inj/NS Inj) 100 ml @ 200 mls/hr Q24H IV 09/14/16 18:00 ([place] 5-325 Mg) 1 tab Q4H PRN PO 09/14/16 12:15 ([place] 10-325 Mg) 1 tab Q6H PRN PO 09/14/16 12:15 (Morphine Inj) 1 mg Q3H PRN IV PUSH 09/14/16 12:15 Reported Meds & Active Scripts Active No Active Prescriptions or Reported Medications Family History mom and dad of old age Social History lives with SO 1 ppd tobacco EtOH daily Physical Exam Vital Signs Vital Signs Date Time Temp Pulse Resp B/P Pulse Ox O2 Delivery O2 Flow Rate FiO2 09/14/16 08:42 96.9 74 19 158/88 96 09/14/16 04:34 98.4 87 18 187/106 94 09/14/16 00:00 97.5 85 20 150/88 92 09/13/16 22:00 89 09/13/16 20:00 96.0 82 20 139/89 96 09/13/16 18:15 96.8 93 20 95 09/13/16 16:50 97 20 191/97 97 09/13/16 15:35 89 20 174/84 100 09/13/16 15:03 96 09/13/16 13:56 97.1 103 18 146/82 96 Physical Exam Alert awake and oriented x 3. No acute distress. Head: NC/AT Neck: No pain with any range of motion and neck. Pulmonary: Normal respiratory effort. Right upper extremity: Mild proximal humerus deformity. Ecchymosis and swelling Patient in a sling. Tender palpation around the periscapular region. No range of motion examined. Mild decrease axillary nerve sensation. Otherwise grossly neurovascularly intact distally. 2+ radial artery pulses. Good cap refill. Left upper extremity: No deformity grossly neurovascular intact. Bilateral lower extremity: No deformity, grossly Neurovascularly intact, +EHL/ FHL. + PT/DP pulses. Supple compartments. Negative Homans sign. Laboratory Laboratory Tests Test 09/13/16 09/13/16 09/13/16 09/14/16 14:30 15:00 21:53 05:40 Prothrombin Time 11.4 Prothromb Time International 1.0 Ratio Activated Partial 26.4 Thromboplast Time Sodium Level 139 141 146 Potassium Level 1.9 2.4 3.9 Chloride Level 99 106 112 Carbon Dioxide Level 30.4 27.7 28.1 Anion Gap 10 7 6 Blood Urea Nitrogen 18 16 16 Creatinine 1.00 0.69 0.64 Estimat Glomerular Filtration 54 82 90 Rate Random Glucose 145 114 95 Calcium Level 8.6 7.4 7.4 Total Creatine Kinase 66 Troponin I LESS THAN 0.02 Thyroid Stimulating Hormone 2.060 3rd Gen Ethyl Alcohol Level LESS THAN 3 White Blood Count 14.6 10.4 Red Blood Count 4.67 3.73 Hemoglobin 14.9 11.7 Hematocrit 44.3 35.4 Mean Corpuscular Volume 94.9 95.0 Mean Corpuscular Hemoglobin 32.0 31.4 Mean Corpuscular Hemoglobin 33.7 33.0 Concent Red Cell Distribution Width 13.6 13.3 Platelet Count 186 127 Mean Platelet Volume 9.1 9.2 Neutrophils (%) (Auto) 84.5 80.9 Lymphocytes (%) (Auto) 10.3 14.1 Monocytes (%) (Auto) 4.4 3.3 Eosinophils (%) (Auto) 0.2 1.3 Basophils (%) (Auto) 0.6 0.4 Neutrophils # (Auto) 12.4 8.5 Lymphocytes # (Auto) 1.5 1.5 Monocytes # (Auto) 0.6 0.3 Eosinophils # (Auto) 0.0 0.1 Basophils # (Auto) 0.1 0.0 CBC Comment DIFF FINAL DIFF FINAL Differential Comment Urine Opiates Screen NEG Urine Barbiturates Screen NEG Urine Amphetamines Screen NEG Urine Benzodiazepines Screen NEG Urine Cocaine Screen NEG Urine Cannabinoids Screen NEG Urine Color YELLOW Urine Turbidity CLEAR Urine pH 5.5 Urine Specific [place] 1.016 Urine Protein NEG Urine Glucose (UA) NEG Urine Ketones NEG Urine Occult Blood NEG Urine Nitrite POS Urine Bilirubin NEG Urine Leukocyte Esterase NEG Urine RBC 0-3 Urine WBC 6-8 Urine Squamous Epithelial 0-5 Cells Urine Bacteria MANY Urine Hyaline Casts 3-5 Microscopic Urinalysis Comment CATH-CULTURE IND Protein Corrected Calcium 8.5 8.6 Magnesium Level 1.8 Total Protein 5.1 5.0 Date/Time Procedure Status Source Growth 09/13/16 15:00 Urine Culture - Preliminary Resulted Urine Catheterized Urine Gram Negative Dhaval Result Diagram: 09/14/16 0540 09/14/16 0540 Imaging Last [address] 09/13/16 1415 Signed Impressions: Service Date/Time: Tuesday, September 13, 2016 14:29 - CONCLUSION: 1. No acute intracranial abnormality is identified. 2. Chronic changes include generalized atrophy and moderate to severe periventricular white matter low attenuation characteristic of chronic microvascular ischemia. There are old lacunes in the left thalamus, one of which is new since the July 2015 exam. Juan R Delatorre MD Chest X-Ray 09/13/16 1415 Signed Impressions: Service Date/Time: Tuesday, September 13, 2016 15:55 - CONCLUSION: 1. No acute cardiopulmonary abnormality is identified. 2. There is an acute right proximal humerus fracture. Please refer to humerus x-ray report for further description. Juan R Delatorre MD Shoulder X-Ray 09/13/16 0000 Signed Impressions: Service Date/Time: Tuesday, September 13, 2016 16:03 - CONCLUSION: Continued fracture humeral head. Tevin Taylor MD FACR Humerus X-Ray 09/13/16 0000 Signed Impressions: Service Date/Time: Tuesday, September 13, 2016 15:58 - CONCLUSION: Committed fracture of the humeral head. Tevin Taylor MD FACR Assessment & Plan Assessment and Plan 75yo female with a history of coronary artery disease sustained a fall at home during which she injured her shoulder. X-rays examination in the emergency department reveal a displaced 2 part right proximal humerus fracture. She is grossly neurovascularly intact. We discussed operative as well as nonoperative treatment options. Her Fracture may do well with nonoperative treatment with close follow-up. I recommend sling for comfort for 1-2 weeks and then slowly start physical therapy for pendulum and passive range of motion. Patient expressed understanding and agrees with the recommendation. All questions answered. Follow-up with Dr. Dos Santos 2 weeks. Saw Dos Santos Jr., MD Sep 14, 2016 13:21
[2016-09-14] MEDS: ACETAMINOPHEN/HYDROcodone 325 MG/10 MG TAB PO PRN ×2 (14:35→20:26)
--- NOTE | 2016-09-14 14:55 | EKG ---
Date Performed: 09/13/2016 Time Performed: 15:08:02 PTAGE: 75 years EKG: Sinus rhythm WITH OCCASIONAL VENTRICULAR PREMATURE COMPLEXES NONSPECIFIC ST & T-WAVE ABNORMALITY BORDERLINE ECG PREVIOUS TRACING : 11/27/2007 14.54 Since previous tracing, no significant change noted DOCTOR: Mary Crow Interpretating Date/Time 09/14/2016 14:54:39
[2016-09-14 16:37] VITALS: BP 164/83; PULSE 87; RESP 19; TEMP 97.6; O2SAT 95
[2016-09-14] MEDS: cefTRIAXone INJ 1,000 MG in SODIUM CHLORIDE 0.9% INJ 100 ML IV SCH (17:01)
[2016-09-14] MEDS: ENOXAPARIN SODIUM 40 MG/0.4 ML SYRINGE SQ SCH (17:01)
[2016-09-14 20:00] VITALS: BP 191/94; PULSE 69; RESP 19; TEMP 98.7; O2SAT 97
[2016-09-15] VITALS (9 sets, daily range): BP systolic 150–195; BP diastolic 83–106; PULSE 57–92; RESP 16–20; TEMP 95.7–99.2; O2SAT 94–99
[2016-09-15] MEDS: MORPHINE SULFATE 4 MG/ML INJ IV PUSH PRN (02:04)
[2016-09-15] MEDS: cloNIDine HCL 0.1 MG TAB PO PRN ×2 (04:34→19:24)
[2016-09-15] MEDS: ACETAMINOPHEN/HYDROcodone 325 MG/10 MG TAB PO PRN ×3 (04:35→20:41)
[2016-09-15] MEDS: SODIUM CHLOR 0.9% 1000 ML INJ 1,000 ML IV SCH ×2 (08:20→19:19)
[2016-09-15] MEDS: PANTOPRAZOLE SOD 40 MG DELAYED RELEASE TAB PO SCH (08:20)
--- NOTE | 2016-09-15 11:03 | HHI.PR ---
Subjective Remarks Pt feeling ok. Pain controlled on current regimen. denies any CP/SOB/n/v Objective Vitals Vital Signs Date Time Temp Pulse Resp B/P Pulse Ox O2 Delivery O2 Flow Rate FiO2 09/15/16 08:35 97.0 64 19 150/84 95 09/15/16 05:35 18 09/15/16 04:00 98.3 77 18 171/84 94 09/15/16 02:09 18 09/15/16 00:00 99.2 57 19 162/83 96 09/14/16 20:00 98.7 69 19 191/94 97 09/14/16 16:37 97.6 87 19 164/83 95 09/14/16 13:16 97.8 83 19 179/103 96 I/O 09/14/16 09/14/16 09/14/16 09/15/16 09/15/16 09/15/16 07:00 15:00 23:00 07:00 15:00 23:00 Intake Total 1260 ml 1190 ml 360 ml Output Total 150 ml Balance 1110 ml 1190 ml 360 ml Intake Oral 60 ml 1190 ml 360 ml IV Total 1200 ml Output Urine Total 150 ml # Voids 1 3 2 # Bowel Movements 0 1 1 Result Diagram: 09/14/16 0540 09/14/16 0540 Imaging Last Impressions Head CT 09/13/165 Signed Impressions: Service Date/Time: Tuesday, September 13, 2016 14:29 - CONCLUSION: 1. No acute intracranial abnormality is identified. 2. Chronic changes include generalized atrophy and moderate to severe periventricular white matter low attenuation characteristic of chronic microvascular ischemia. There are old lacunes in the left thalamus, one of which is new since the July 2015 exam. Juan R Delatorre MD Chest X-Ray 09/13/16 1415 Signed Impressions: Service Date/Time: Tuesday, September 13, 2016 15:55 - CONCLUSION: 1. No acute cardiopulmonary abnormality is identified. 2. There is an acute right proximal humerus fracture. Please refer to humerus x-ray report for further description. Juan R Delatorre MD Shoulder X-Ray 09/13/16 0000 Signed Impressions: Service Date/Time: Tuesday, September 13, 2016 16:03 - CONCLUSION: Continued fracture humeral head. Tevin Taylor MD FACR Humerus X-Ray 09/13/16 0000 Signed Impressions: Service Date/Time: Tuesday, September 13, 2016 15:58 - CONCLUSION: Committed fracture of the humeral head. Tevin Taylor MD FACR Objective Remarks GENERAL: This is a well-nourished, well-developed patient, in no apparent distress. EYES: Extraocular motions intact. No scleral icterus. No injection or drainage. ENT: Nose without drainage. Airway patent. NECK: Trachea midline. CARDIOVASCULAR: Regular rate and rhythm without murmurs RESPIRATORY: Clear to auscultation. No wheezes GASTROINTESTINAL: Abdomen soft, non-tender, nondistended.No guarding. MUSCULOSKELETAL: Extremities without edema. right arm in slig. able to move fingers, cap refill <2sec NEUROLOGICAL: Awake and alert. Cranial nerves II through XII intact. Normal speech. A/P Problem List: (1) Hypokalemia ICD Code: E87.6 Status: Acute (2) Diarrhea ICD Code: R19.7 Status: Acute (3) Humeral fracture ICD Code: S42.309A Status: Acute (4) UTI (urinary tract infection) ICD Code: N39.0 Status: Acute (5) Weakness ICD Code: R53.1 Status: Acute (6) HTN (hypertension) ICD Code: I10 Status: Acute Assessment and Plan (1) Hypokalemia resolved. mag normal. s/p60 meq in ER (2) Diarrhea resolved (3) Humeral fracture ortho, Dr. Dos Santos, evaluated the patient, recommends nonoperative mgt, sling for comfort for 1-2 weeks and then slowly start physical therapy for pendulum and passive range of motion. f/p (4) UTI (urinary tract infection) Sepsis urine growing klebsiella PNA and Kluyvera Ascorbata. sensitive to rocephin but final sensitivity for the kluyvera ascorbata still pending. Rocephin empiric, follow cultures which so far are pending (5) Weakness PT following, recommends rehab. CM consulted (6) HTN (hypertension) clonidine prn may need chronic therapy Discharge Planning f/u urine cx till final sling for comfort for 1-2 weeks and then slowly start physical therapy for pendulum and passive range of motion. continue pain mgt CM consulted as PT recommending rehab Problem Qualifiers (1) Humeral fracture: Qualified Code: S42.291A - Other closed displaced fracture of proximal end of right humerus, initial encounter (2) UTI (urinary tract infection): Qualified Code: N30.00 - Acute cystitis without hematuria Marianne Kurtz MD Sep 15, 2016 11:03
--- NOTE | 2016-09-15 13:51 | HHI.FF ---
Face to Face Verification Diagnosis: (1) UTI (urinary tract infection) (2) Humeral fracture Physical Therapy Order: Evaluate and Treat I have seen patient Renetta Toledo on 09/15/16. My clinical findings support the need for the requested home health care services because: Pt w humeral fx and will need PT Orthopedic sx recommends sling for comfort for 1-2 weeks and then slowly start physical therapy for pendulum and passive range of motion. Limited ability to care for self I certify that my clinical findings support that this patient is homebound because: Pt w humeral fx and will need PT Orthopedic sx recommends sling for comfort for 1-2 weeks and then slowly start physical therapy for pendulum and passive range of motion. Unsteady gait/balance Marianne Kurtz MD Sep 15, 2016 13:50
[2016-09-15] MEDS: cefTRIAXone INJ 1,000 MG in SODIUM CHLORIDE 0.9% INJ 100 ML IV SCH (18:24)
[2016-09-15] MEDS: ENOXAPARIN SODIUM 40 MG/0.4 ML SYRINGE SQ SCH (18:24)
[2016-09-16] VITALS: BP 163/91; PULSE 73; RESP 20; TEMP 97.2; O2SAT 96
[2016-09-16] MEDS: MORPHINE SULFATE 4 MG/ML INJ IV PUSH PRN (00:44)
[2016-09-16 04:00] VITALS: BP 196/88; PULSE 90; RESP 18; TEMP 95.4; O2SAT 97
[2016-09-16] MEDS: cloNIDine HCL 0.1 MG TAB PO PRN (05:17)
[2016-09-16] MEDS: ACETAMINOPHEN/HYDROcodone 325 MG/10 MG TAB PO PRN (05:17)
[2016-09-16 08:00] VITALS: BP 168/88; PULSE 65; PULSE 75; RESP 20; TEMP 97; O2SAT 97
[2016-09-16] MEDS: PANTOPRAZOLE SOD 40 MG DELAYED RELEASE TAB PO SCH (09:32)
[2016-09-16] MEDS: SODIUM CHLOR 0.9% 1000 ML INJ 1,000 ML IV SCH (09:35)
[2016-09-16] MEDS ORDERED: HYDR-3583 PO (10:56)
[2016-09-16] MEDS ORDERED: AMLO10 PO (10:56)
[2016-09-16] MEDS ORDERED: CIPR-9 PO (10:56)
[2016-09-16] MEDS ORDERED: CIPROFLOXACIN 500 MG TAB PO ONE (11:00)
--- NOTE | 2016-09-16 11:03 | HHI.DS ---
Discharge Summary Admission Date Sep 13, 2016 at 17:03 Discharge Date: Sep 16, 2016 Admitting Diagnosis Hypokalemia, UTI, AMS, humerus fracture (1) Hypokalemia ICD Code: E87.6 Diagnosis: Principal (2) Humeral fracture ICD Code: S42.309A Diagnosis: Principal (3) UTI (urinary tract infection) ICD Code: N39.0 Diagnosis: Principal (4) Weakness ICD Code: R53.1 Diagnosis: Principal (5) HTN (hypertension) ICD Code: I10 Diagnosis: Principal Procedures none Brief History - From Admission Pt is a 75-year-old female with minimal past medical history although she admits having a cardiac event at some point in having a stent. She does not follow up with any doctors in fact has had several points with doctors which she has canceled in the last 6 weeks. Patient has come in with increased weakness and fall at home which she sustained a right humeral fracture. She is more confused and the significant other who lives with her sister she's had urinary incontinence and chills as well as fecal incontinence over the last 2 weeks. The patient has not had any recent travel but has had difficulty sleeping. She presented to the emergency room with evidence of urinary tract infection, leukocytosis and tachycardia and meets sepsis criteria. Patient also has hypokalemia of 1.9. She has not been eating and has had poor appetite over the last several weeks as well. Patient admitted to the hospital for further evaluation and treatment CBC/BMP: 09/14/16 0540 09/14/16 0540 Significant Findings Laboratory Tests Test 09/13/16 09/13/16 09/13/16 09/14/16 14:30 15:00 21:53 05:40 Potassium Level 1.9 MEQ/L 2.4 MEQ/L (3.5-5.1) (3.5-5.1) Estimat Glomerular Filtration 54 ML/MIN (>89) 82 ML/MIN (>89) Rate Random Glucose 145 MG/DL 114 MG/DL (74-106) (74-106) Troponin I LESS THAN 0.02 NG/ML (0.02-0.05) White Blood Count 14.6 TH/MM3 (4.0-11.0) Neutrophils (%) (Auto) 84.5 % 80.9 % (16.0-70.0) (16.0-70.0) Neutrophils # (Auto) 12.4 TH/MM3 8.5 TH/MM3 (1.8-7.7) (1.8-7.7) Urine Nitrite POS (NEG) Urine WBC 6-8 /hpf (0-5) Urine Bacteria MANY /hpf (NONE) Urine Hyaline Casts 3-5 /lpf (RARE) Calcium Level 7.4 MG/DL 7.4 MG/DL (8.5-10.1) (8.5-10.1) Total Protein 5.1 GM/DL 5.0 GM/DL (6.4-8.2) (6.4-8.2) Red Blood Count 3.73 MIL/MM3 (4.00-5.30) Platelet Count 127 TH/MM3 (150-450) Sodium Level 146 MEQ/L (136-145) Chloride Level 112 MEQ/L (98-107) Imaging Last Impressions Head CT 09/13/16 1415 Signed Impressions: Service Date/Time: Tuesday, September 13, 2016 14:29 - CONCLUSION: 1. No acute intracranial abnormality is identified. 2. Chronic changes include generalized atrophy and moderate to severe periventricular white matter low attenuation characteristic of chronic microvascular ischemia. There are old lacunes in the left thalamus, one of which is new since the July 2015 exam. Juan R Delatorre MD Chest X-Ray 09/13/16 1415 Signed Impressions: Service Date/Time: Tuesday, September 13, 2016 15:55 - CONCLUSION: 1. No acute cardiopulmonary abnormality is identified. 2. There is an acute right proximal humerus fracture. Please refer to humerus x-ray report for further description. Juan R Delatorre MD Shoulder X-Ray 09/13/16 0000 Signed Impressions: Service Date/Time: Tuesday, September 13, 2016 16:03 - CONCLUSION: Continued fracture humeral head. Tevin Taylor MD FACR Humerus X-Ray 09/13/16 0000 Signed Impressions: Service Date/Time: Tuesday, September 13, 2016 15:58 - CONCLUSION: Committed fracture of the humeral head. Tevin Taylor MD FACR PE at Discharge GENERAL: This is a well-nourished, well-developed patient, in no apparent distress. EYES: Extraocular motions intact. No scleral icterus. No injection or drainage. ENT: Nose without drainage. Airway patent. NECK: Trachea midline. CARDIOVASCULAR: Regular rate and rhythm without murmurs RESPIRATORY: Clear to auscultation. No wheezes GASTROINTESTINAL: Abdomen soft, non-tender, nondistended.No guarding. MUSCULOSKELETAL: Extremities without edema. right arm in slig. able to move fingers, cap refill <2sec NEUROLOGICAL: Awake and alert. Cranial nerves II through XII intact. Normal speech. Pt update on day of discharge Patient feeling well. Pain is controlled. Denies any chest pain or shortness of breath. Does not want to go to rehabilitation and prefers to have home health PT. Family at bedside is agreeable with this plan. Hospital Course Humeral fracture ortho, Dr. Dos Santos, evaluated the patient, recommends nonoperative mgt, sling for comfort for 1-2 weeks and then slowly start physical therapy for pendulum and passive range of motion. Patient to follow-up with orthopedic surgery in 2 weeks. PT evaluated the patient and recommended rehabilitation however patient refused and would prefer to go home with home health. Family member at bedside is agreeable with plan. UTI (urinary tract infection) Sepsis urine growing klebsiella PNA and Kluyvera Ascorbata. Both sensitive to Cipro. A prescription in chart. Will give first dose now prior to discharge. Status post Rocephin HTN (hypertension) Patient was started on amlodipine 10 mg daily. RN will repeat blood pressure around lunchtime and is improved, and will be discharged home today. She will need to follow up with her primary care physician early next week for BP check and further management of her hypertension. Pt Condition on Discharge: Stable Discharge Disposition: Disch w/ Home Health Serv Discharge Time: > 30 minutes Discharge Instructions DIET: Follow Instructions for: Heart Healthy Diet Activities you can perform: See Additionl Instruction Other Activity Instructions: sling for comfort for 1-2 weeks and then slowly start physical therapy for pendulum and passive range of motion. Follow up Referrals: Orthopedics - 2 Weeks with Saw Dos Santos Jr., MD PCP Follow-up - 1 Week New Medications: Ciprofloxacin (Cipro) 500 Mg Tab 500 MG PO BID Started 09/16/16 first dose tonight Infection #9 Ref 0 TAB Amlodipine (Norvasc) 10 Mg Tab 10 MG PO DAILY Days 30 TAB Hydrocodone-Acetaminophen (Hydrocodone-Acetaminophen) 10-325 mg Tab 1 TAB PO Q6H PRN PAIN SCALE 6 TO 10 #40 TAB Marianne Kurtz MD Sep 16, 2016 11:02
[2016-09-16 12:00] VITALS: BP 142/79; PULSE 68; RESP 18; TEMP 96.9; O2SAT 96
[2016-09-16] MEDS ORDERED: PERI8.6T PO (12:33)
== END 2016-09-16 13:02 | disposition home health service (06) | DRG 872 ==
LOC: PHED 13:50 → PHEDA 17:03 → PH3A 18:11
PROVIDERS: ADMIT Hospitalist; ATTEND Hospitalist
DX: A41.9 Sepsis, unspecified organism (principal); I10 Essential (primary) hypertension; N30.00 Acute cystitis without hematuria; S42.291A Other displaced fracture of upper end of right humerus, initial encounter for closed fracture; E87.6 Hypokalemia; I25.10 Atherosclerotic heart disease of native coronary artery without angina pectoris; K21.9 Gastro-esophageal reflux disease without esophagitis; F17.210 Nicotine dependence, cigarettes, uncomplicated; W19.XXXA Unspecified fall, initial encounter; R53.1 Weakness; R19.7 Diarrhea, unspecified; B96.1 Klebsiella pneumoniae [K. pneumoniae] as the cause of diseases classified elsewhere; B96.20 Unspecified Escherichia coli [E. coli] as the cause of diseases classified elsewhere; Y92.018 Other place in single-family (private) house as the place of occurrence of the external cause; Z95.5 Presence of coronary angioplasty implant and graft
CPT/HCPCS: 70450; 71020; 73030; 73060; 80048; 80307; 81001; 82550; 83735; 84155; 84443; 84484; 85025; 85610; 85730; 87077; 87086; 87186; 93005; 96361; 96365; 96375; J0696; J1650; J2270; J3480; J7030; P9612

== ENCOUNTER 2017-06-08 14:47 | Inpatient (IN) | payer OTHER, MEDICARE ==
[2017-06-08] VITALS (7 sets, daily range): BP systolic 132–196; BP diastolic 66–91; PULSE 90–108; RESP 16–20; TEMP 98–98.1; O2SAT 98–99
[~2017-06-08] VITALS: Ht 172.7 cm; Wt 46.3 kg
[~2017-06-08 14:47] MED LIST changes: +AMLO10 PO; -ASPI81TA45 PO; +CIPR-9 PO; -DICY20TA10 PO; -HYDR-3533 PO; +HYDR-3583 PO; -LABE100T2 PO; -LOPE2 PO; -LOVA40TA PO; +PERI8.6T PO
[2017-06-08] MEDS ORDERED: HEPARIN SODIUM - SQ 10,000 UNITS/ML VIAL SQ ONE (15:45)
--- NOTE | 2017-06-08 15:57 | PD ---
HPI Chief Complaint: Altered Mental Status Time Seen by Provider: 15:05 Travel History International Travel<30 days: No Contact w/Intl Traveler<30days: No Traveled to known affect area: No History of Present Illness HPI This patient has some dementia and has chronic confusion. However confusion has worsened over the last week or so. Patient was evaluated by neurologist Dr. Rizzo recently and had a brain MRI 2 days ago. This shows bilateral acute infarcts. Dr. Rizzo saw this patient this morning and advised him to come to the emergency room to be admitted for her acute ischemic CVA and worsening confusion. Patient is very confused and cannot provide any useful history or review of systems. She has no idea why she is here. PFSH Past Medical History Hx Anticoagulant Therapy: Yes Asthma: No Heart Rhythm Problems: No Cancer: No Cardiovascular Problems: Yes (CAD WITH STENT PLACEMENT) High Cholesterol: No Chest Pain: No Congestive Heart Failure: No COPD: Yes Cerebrovascular Accident: No Coronary Artery Disease: Yes Diabetes: No Diminished Hearing: No Endocrine: No GERD: Yes Genitourinary: No Hiatal Hernia: No Hypertension: Yes Immune Disorder: No Musculoskeletal: No Neurologic: Yes Psychiatric: No Reproductive: No Respiratory: Yes Immunizations Current: Yes Migraines: No Seizures: No Sleep Apnea: No Thyroid Disease: No Ulcer: No Menopausal: Yes Past Surgical History Abdominal Surgery: Yes (APPY WHEN I WAS 2 YEARS OLD) Appendectomy: Yes Cardiac Surgery: Yes Coronary Stent: Yes Ear Surgery: No Endocrine Surgery: No Eye Surgery: No Genitourinary Surgery: No Gynecologic Surgery: Yes (bladder repair) Hysterectomy: Yes Oral Surgery: No Thoracic Surgery: No Social History Alcohol Use: Yes Tobacco Use: Yes (1 PPD) Substance Use: No Allergies-Medications (Allergen,Severity, Reaction): Coded Allergies: No Known Allergies (Verified , 09/13/16) Reported Meds & Prescriptions Reported Meds & Active Scripts Active Sandra-Colace (Sennosides-Docusate Sodium) 8.6-50 Mg Tab 1 Tab PO BID PRN Cipro (Ciprofloxacin HCl) 500 Mg Tab 500 Mg PO BID Started 09/16/16 first dose tonight Hydrocodone-Acetaminophen 10-325 mg Tab 1 Tab PO Q6H PRN Norvasc (Amlodipine Besylate) 10 Mg Tab 10 Mg PO DAILY 30 Days Review of Systems ROS Limitations: Clinical Condition, Altered Mental Status, Poor Historian Physical Exam Narrative GENERAL: Well-nourished, well-developed patient in no apparent distress. SKIN: Focused skin assessment reveals no rash and nodules. Skin is Warm and dry. HEAD: Atraumatic. Normocephalic. EYES: Pupils equal and round. No scleral icterus. No injection or drainage. ENT: No nasal bleeding or discharge. Mucous membranes pink and moist. NECK: Trachea midline. No JVD. CARDIOVASCULAR: Regular rate and rhythm. No murmur appreciated. RESPIRATORY: No accessory muscle use. Clear to auscultation. Breath sounds equal bilaterally. GASTROINTESTINAL: Abdomen soft, non-tender, nondistended. Hepatic and splenic margins not palpable. MUSCULOSKELETAL: No obvious deformities. No clubbing. No cyanosis. No edema. NEUROLOGICAL: Awake and alert. No obvious cranial nerve deficits. Motor exam reveals a definite weakness of the left leg when compared to the right. Sensation subjectively intact. Normal speech. PSYCHIATRIC: Appropriate mood and affect; insight and judgment poor. Data Data Last Documented VS Vital Signs Date Time Temp Pulse Resp B/P (MAP) Pulse Ox O2 Delivery O2 Flow Rate FiO2 06/08/17 15:27 105 18 160/66 (97) 99 Room Air 06/08/17 14:51 98.1 Orders Orders Iv Access Insert/Monitor (06/08/17 15:37) Complete Blood Count With Diff (06/08/17 15:37) Basic Metabolic Panel (Bmp) (06/08/17 15:37) Prothrombin Time / Inr (Pt) (06/08/17 15:37) Act Partial Throm Time (Ptt) (06/08/17 15:37) Electrocardiogram (06/08/17 ) Heparin Inj (Heparin Inj) (06/08/17 15:45) Comprehensive Metabolic Panel (06/09/17 06:00) Free Thyroxine (T4) (06/09/17 06:00) Hemoglobin (Hgb) A1c (06/09/17 06:00) Magnesium (Mg) (06/09/17 06:00) Phosphorus (Po4) (06/09/17 06:00) Thyroid Stimulating Hormone (06/09/17 06:00) Complete Blood Count With Diff (06/09/17 06:00) Admit To Inpatient (06/08/17 ) Code Status (06/08/17 16:26) Vital Signs (Adult) Q4H (06/08/17 16:26) Nih Stroke Scale - Nihss .On admission and discharge (06/08/17 16:26) Neuro Checks Q4H (06/08/17 16:26) Ot Request For Service (06/08/17 16:26) Consult Pt Eval & Treat (06/08/17 16:26) Speech Therapy Consult-Eval/Tx (06/08/17 16:26) Case Management Consult (06/08/17 ) Activity Bed Rest (06/08/17 16:26) Nursing Bedside Swallow Assess .ONCE (06/08/17 16:26) Scd Bilateral/Knee High TRUDI.QSHIFT (06/08/17 16:26) Creatine Kinase (Cpk) (06/08/17 16:26) Creatine Kinase (Cpk) (06/08/17 22:26) Creatine Kinase (Cpk) (06/09/17 04:26) Troponin I (06/08/17 16:26) Troponin I (06/08/17 22:26) Troponin I (06/09/17 04:26) Hemoglobin (Hgb) A1c (06/08/17 16:26) Lipid Profile (06/09/17 06:00) Us Carotid Arteries Comp Bilat (06/08/17 ) Echo 2d Comp With Doppler (06/08/17 ) Resp Oxygen Nc Stroke (06/08/17 ) Resp Incentive Spirometry (06/08/17 ) Consult Neurology (06/08/17 ) Sodium Chloride 0.9% Flush (Ns Flush) (06/08/17 21:00) Sodium Chloride 0.9% Flush (Ns Flush) (06/08/17 16:30) Atorvastatin (Lipitor) (06/08/17 21:00) Bedside Glucose TRUDI.CSUGAR (06/08/17 16:26) ^ Discontinue Insulin Orders (06/08/17 16:26) Insulin Aspart Supplemtl Scale (Novolog (06/08/17 17:00) Dextrose 50% In [place] (Vial) Inj (D50w (Vi (06/08/17 16:30) Glucagon Inj (Glucagon Inj) (06/08/17 16:30) Vice President Compliance / Telemetry TRUDI.Q8H (06/08/17 16:26) Consult Stroke Navigator (06/08/17 ) Heparin Inj (Heparin Inj) (06/08/17 17:00) Prothrombin Time / Inr (Pt) (06/09/17 06:00) Inpatient Certification (06/08/17 ) Amlodipine (Norvasc) (06/09/17 09:00) Docusate Sodium-Senna (Sandra-Colace) (06/08/17 16:30) Warfarin (Coumadin) (06/08/17 16:45) Warfarin (Coumadin) (06/09/17 16:00) Diet Heart Healthy (06/08/17 Dinner) Urinalysis - C+S If Indicated (06/08/17 16:36) (Hub Use Only)Inp Phy Cons/Ref (06/08/17 ) Labs Laboratory Tests Test 06/08/17 15:55 White Blood Count 12.1 TH/MM3 Red Blood Count 4.77 MIL/MM3 Hemoglobin 13.9 GM/DL Hematocrit 41.1 % Mean Corpuscular Volume 86.3 FL Mean Corpuscular Hemoglobin 29.1 PG Mean Corpuscular Hemoglobin Concent 33.7 % Red Cell Distribution Width 13.7 % Platelet Count 221 TH/MM3 Mean Platelet Volume 8.9 FL Neutrophils (%) (Auto) 76.1 % Lymphocytes (%) (Auto) 16.0 % Monocytes (%) (Auto) 5.8 % Eosinophils (%) (Auto) 1.4 % Basophils (%) (Auto) 0.7 % Neutrophils # (Auto) 9.2 TH/MM3 Lymphocytes # (Auto) 1.9 TH/MM3 Monocytes # (Auto) 0.7 TH/MM3 Eosinophils # (Auto) 0.2 TH/MM3 Basophils # (Auto) 0.1 TH/MM3 CBC Comment DIFF FINAL Differential Comment Prothrombin Time 10.6 SEC Prothromb Time International Ratio 1.0 RATIO Activated Partial Thromboplast Time 24.0 SEC Blood Urea Nitrogen 21 MG/DL Creatinine 1.21 MG/DL Random Glucose 114 MG/DL Calcium Level 9.4 MG/DL Sodium Level 143 MEQ/L Potassium Level 4.5 MEQ/L Chloride Level 105 MEQ/L Carbon Dioxide Level 28.9 MEQ/L Anion Gap 9 MEQ/L Estimat Glomerular Filtration Rate 43 ML/MIN MDM Medical Decision Making Medical Screen Exam Complete: Yes Emergency Medical Condition: Yes Medical Record Reviewed: Yes Differential Diagnosis Ischemic CVA, worsening dementia, intracranial hemorrhage Narrative Course I have reviewed the patient's electronic medical record. I reviewed her admission from 8 months ago I spoke with Dr. Rizzo. He recommends inpatient admission for acute ischemic CVA. He recommends starting subcu heparin and Coumadin at 5 mg daily. He does not recommend any further imaging since brain MRI is only 2 days old I have ordered IV placement and lab studies. EKG shows sinus rhythm with occasional ectopy Extended cardiac monitoring confirms sinus rhythm with occasional ectopic beat but no A. fib Lab studies are reviewed I discussed with the hospitalist will admit Diagnosis Primary Impression: Neurologic deficit due to acute ischemic cerebrovascular accident (CVA) Additional Impression: Confusion Admitting Information Admitting Physician Requests: Admit Haseeb Vasquez MD Jun 08, 2017 15:57
[2017-06-08 16:11] LABS: AUTOMATED NEUTROPHIL # 9.2 TH/MM3 (1.8-7.7); BASOPHIL # 0.1 TH/MM3 (0-0.2); BASOPHIL % 0.7 % (0.0-2.0); EOSINOPHIL # 0.2 TH/MM3 (0-0.4); EOSINOPHIL % 1.4 % (0.0-4.0); HEMATOCRIT 41.1 % (35.0-46.0); HEMOGLOBIN 13.9 GM/DL (11.6-15.3); LYMPHOCYTE # 1.9 TH/MM3 (1.0-4.8); MEAN CELL VOLUME 86.3 FL (80.0-100.0); MEAN CORPUSCULAR HEMOGLOBIN 29.1 PG (27.0-34.0); MEAN CORPUSCULAR HGB CONC 33.7 % (32.0-36.0); MEAN PLATELET VOLUME 8.9 FL (7.0-11.0); MONO % 5.8 % (0.0-8.0); MONOCYTE # 0.7 TH/MM3 (0-0.9); NEUT % 76.1 % (16.0-70.0); PLATELET COUNT 221 TH/MM3 (150-450); RED BLOOD COUNT 4.77 MIL/MM3 (4.00-5.30); RED CELL DISTRIBUTION WIDTH 13.7 % (11.6-17.2); WHITE BLOOD COUNT 12.1 TH/MM3 (4.0-11.0)
[2017-06-08 16:30] LABS: BICARBONATE 28.9 MEQ/L (21.0-32.0); CALCIUM 9.4 MG/DL (8.5-10.1); CREATININE 1.21 MG/DL (0.50-1.00)
[2017-06-08] MEDS ORDERED: DEXTROSE 50% IN WATER 50 ML VIAL(D50) IV PUSH PRN (16:30)
[2017-06-08] MEDS ORDERED: GLUCAGON 1 MG/ML VIAL OTHER PRN (16:30)
[2017-06-08] MEDS ORDERED: SODIUM CHLORIDE 0.9% FLUSH 10 ML FLUSH IV FLUSH PRN (16:30)
[2017-06-08 16:36] LABS: PROTHROMBIN TIME - PATIENT 10.6 SEC (9.8-11.6)
[2017-06-08] MEDS ORDERED: WARFARIN SOD 5 MG TAB PO ONE (16:45)
[2017-06-08] MEDS: HEPARIN SODIUM - SQ 10,000 UNITS/ML VIAL SQ SCH (17:00)
[2017-06-08] MEDS: INSULIN ASPART SUPPLEMENTAL SCALE SQ SCH ×2 (17:00→21:00)
--- NOTE | 2017-06-08 17:37 | MB ---
cc: Terrance Rizzo MD, David J MD DATE: 06/08/2017 HISTORY OF PRESENT ILLNESS: Briefly, the patient is a 76-year-old right-handed woman with a history of hypercholesterolemia, had broken her arm a few months ago, increasing confusion, bowel and bladder incontinence, abnormal gait, short steps, a smoker with a [id number] history. She lives with her . I had seen her in the office. She was noncompliant, would answer calls at her home and cancel all appointments. I tried her on some Sinemet for her walking, but it did not change. An MRI was done on 06/06/2017 at [place] that showed acute right occipital and acute left MCA strokes and, as such, we sent her to the emergency room today for coumadinization and subcutaneous heparin, which could not be otherwise done as an outpatient. She does need an echo and a Holter in the hospital and also an MRA of the neck and [facility] and we will have neurology followup on these. MD INDIGO Nelson/ , 05:27 PM , 05:36 PM
[2017-06-08 18:17] LABS: TROPONIN I LESS THAN 0.02 NG/ML (0.02-0.05)
[2017-06-08] MEDS ORDERED: NAME10TA PO (18:21)
[2017-06-08] MEDS ORDERED: SINE25TA PO (18:21)
--- NOTE | 2017-06-08 18:49 | RADRPT ---
EXAM DATE/TIME: 06/08/2017 17:50 [facility] COMPARISON: No previous studies available for comparison. INDICATIONS : Worsening confusion x 1 week. MEDICAL HISTORY : Cerebrovascular disease. Dementia. Cardiovascular disease Hypertension. SURGICAL HISTORY : Appendectomy. Hysterectomy. Cardiac stent placement. Bladder repair. ENCOUNTER: Initial ACUITY: 1 week PAIN SCORE: 0/10 LOCATION: Bilateral neck PEAK SYSTOLIC VELOCITIES (cm/sec): ICA/CCA RATIO: Right: 3.47 Left: 3.12 ICA: Right: 110 Left: 144 CCA: Right: 32 Left: 46 ECA: Right: 89 Left: 49 VERTEBRAL: Right: Not Visualized. Left: 58 antegrade Elevated flow velocities and ICA/CCA ratios have been found to correlate with increased degrees of vessel stenosis, calculated as percentage of diameter relative to a normal segment of distal ICA/CCA FINDINGS: RIGHT CAROTID: There is diffuse atherosclerotic plaque, especially bulb and proximal ICA. There is acceleration of f low in the internal carotid artery, especially proximal. LEFT CAROTID: There is diffuse atherosclerotic plaque, especially bulb and proximal ICA. There is acceleration of f low in the ICA, especially the mid ICA. VERTEBRAL ARTERIES: Right vertebral artery not clearly visualized. There is antegrade flow in the left vertebral artery. MISCELLANEOUS: None. CONCLUSION: 1. Diffuse atherosclerotic plaque of both carotid arteries and with hemodynamically significant narro wing in both ICAs. 2. Potentially occluded right vertebral artery. There is antegrade flow in the left vertebral artery. Juan R Lemons MD on June 08, 2017 at 18:44 Board Certified Radiologist. This report was verified electronically.
[2017-06-08 18:58] LABS: BACTERIA, URINE MANY /hpf; BILIRUBIN, URINE NEG (NEG); BLOOD, URINE SMALL (NEG); GLUCOSE,URINE NEG (NEG); HYALINE CAST, URINE 2 /lpf (RARE); KETONE, URINE NEG (NEG); MUCUS URINE FEW /lpf (OCC); NITRITE,URINE POS (NEG); PH, URINE 5.5 (5.0-8.5); SQUAMOUS EPITHELIAL CELL URINE 1 /hpf (0-5); URINE COLOR YELLOW (YELLW/STRAW); URINE LEUKOCYTE ESTERASE LARGE (NEG); WHITE BLOOD CELL CLUMPS FEW
--- NOTE | 2017-06-08 19:32 | HHI.HP ---
[facility] Nolberto Sarah Do, MD Admission Diagnosis acute ischemic CVA, AMS Diagnoses: (1) CVA (cerebral vascular accident) Diagnosis: Principal (2) Encephalopathy Diagnosis: Principal (3) UTI (urinary tract infection) Diagnosis: Principal (4) HTN (hypertension) Diagnosis: Principal (5) Renal insufficiency Diagnosis: Principal Travel History International Travel<30 Days: No Contact w/Intl Traveler <30 Da: No Traveled to Known Affected Are: No History of Present Illness This is a 76-year-old female with a PMH of HTN, CAD, COPD, Tobacco Abuse and Dementia who was referred to ER by her Neurologist, Dr. Rizzo, for abnormal outpatient MRI Brain. Pt unable to provide much history due to significant confusion. Per records, pt has been following w/ Dr. Rizzo for progressive weakness, gait instability and confusion, however has unfortunately cancelled multiple appointments. Outpatient MRI Brain 06/06/17 showing acute right occipital and acute left MCA strokes. She was sent to the ER for admission/ anticoagulation. Pt largely unaware as to why she's here. States "they say I can't walk, but I can". On arrival, BP 132/70, HR 100, O2 sat 98% RA, Afebrile. WBC 12.1. Creatinine 1.21, previously 0.64 on 09/14/2016. Troponin negative. INR 1.0. UA positive for UTI. Carotid US diffuse atherosclerotic plaque of both carotid arteries with hemodynamically significant narrowing in both ICAs, potentially occluded right vertebral artery. Review of Systems Except as stated in HPI: all other systems reviewed are Neg ROS: 14 point review of systems otherwise negative. Past Family Social History Past Medical History PMH: HTN, CAD, COPD, Tobacco Abuse and Dementia Past Surgical History PAST SURGICAL HISTORY: Appendectomy, Cardiac Stent, Bladder Repair, Hysterectomy Allergies: Coded Allergies: No Known Allergies (Verified , 09/13/16) Family History PAST FAMILY HISTORY: Reviewed. No h/o DM or CAD Social History PAST SOCIAL HISTORY: Positive for alcohol, unable to quantify. Smokes 1ppd. Negative for drugs. Physical Exam Vital Signs Vital Signs Date Time Temp Pulse Resp B/P (MAP) Pulse Ox O2 Delivery O2 Flow Rate FiO2 06/08/17 19:03 98 17 170/83 (112) 98 Room Air 06/08/17 19:01 108 18 181/91 (121) 98 Room Air 06/08/17 18:32 107 18 196/88 (124) 99 Room Air 06/08/17 18:32 99 Room Air 06/08/17 15:27 105 18 160/66 (97) 99 Room Air 06/08/17 14:51 98.1 100 18 132/70 (90) 98 Physical Exam PE: GENERAL: Pleasant elderly white female in no acute distress. Confused. HEENT: PERRLA, EOMI. No scleral icterus or conjunctival pallor. No lid lag or facial droop. CARDIOVASCULAR: Regular rate and rhythm. No obvious murmurs to auscultation. No chest tenderness to palpation. RESPIRATORY: No obvious rhonchi or wheezing. Clear to auscultation. Breath sounds equal bilaterally. GASTROINTESTINAL: Abdomen soft, non-tender, nondistended. BS normal. MUSCULOSKELETAL: Extremities without clubbing, cyanosis, or edema. No obvious deformities. NEUROLOGICAL: Awake, alert, oriented to person, confused. No focal neurologic deficits. Moving both upper and lower extremities spontaneously. Laboratory Laboratory Tests Test 06/08/17 15:55 06/08/17 18:42 White Blood Count 12.1 Red Blood Count 4.77 Hemoglobin 13.9 Hematocrit 41.1 Mean Corpuscular Volume 86.3 Mean Corpuscular Hemoglobin 29.1 Mean Corpuscular Hemoglobin Concent 33.7 Red Cell Distribution Width 13.7 Platelet Count 221 Mean Platelet Volume 8.9 Neutrophils (%) (Auto) 76.1 Lymphocytes (%) (Auto) 16.0 Monocytes (%) (Auto) 5.8 Eosinophils (%) (Auto) 1.4 Basophils (%) (Auto) 0.7 Neutrophils # (Auto) 9.2 Lymphocytes # (Auto) 1.9 Monocytes # (Auto) 0.7 Eosinophils # (Auto) 0.2 Basophils # (Auto) 0.1 CBC Comment DIFF FINAL Differential Comment Prothrombin Time 10.6 Prothromb Time International Ratio 1.0 Activated Partial Thromboplast Time 24.0 Blood Urea Nitrogen 21 Creatinine 1.21 Random Glucose 114 Calcium Level 9.4 Sodium Level 143 Potassium Level 4.5 Chloride Level 105 Carbon Dioxide Level 28.9 Anion Gap 9 Estimat Glomerular Filtration Rate 43 Total Creatine Kinase 46 Troponin I LESS THAN 0.02 Urine Color YELLOW Urine Turbidity HAZY Urine pH 5.5 Urine Specific [place] 1.013 Urine Protein 30 Urine Glucose (UA) NEG Urine Ketones NEG Urine Occult Blood SMALL Urine Nitrite POS Urine Bilirubin NEG Urine Urobilinogen LESS THAN 2.0 Urine Leukocyte Esterase LARGE Urine RBC 5 Urine WBC 20 Urine WBC Clumps FEW Urine Squamous Epithelial Cells 1 Urine Bacteria MANY Urine Hyaline Casts 2 Urine Mucus FEW Microscopic Urinalysis Comment CULTURE INDICATED Date/Time Source Procedure Growth Status 06/08/17 18:42 Urine Clean Catch Urine Culture Pending Received Result Diagram: 06/08/17 1555 06/08/17 1555 Caprini VTE Risk Assessment Caprini VTE Risk Assessment: Mod/High Risk (score >= 2) Caprini Risk Assessment Model Point Value = 1 Point Value = 2 Point Value = 3 Point Value = 5 Age 41-60 Minor surgery BMI > 25 kg/m2 Swollen legs Varicose veins or History of unexplained or recurrent spontaneous Oral contraceptives or hormone replacement Sepsis (< 1 month) Serious lung disease, including pneumonia (< 1 month) Abnormal pulmonary function Acute myocardial infarction Congestive heart failure (< 1 month) History of inflammatory bowel disease Medical patient at bed rest Age 61-74 Arthroscopic surgery Major open surgery (> 45 min) Laparoscopic surgery (> 45 min) Malignancy Confined to bed (> 72 hours) Immobilizing plaster cast Central venous access Age >= 75 History of VTE Family history of VTE Factor V Leiden Prothrombin [id number] Lupus anticoagulant Anticardiolipin antibodies Elevated serum homocysteine Heparin-induced thrombocytopenia Other congenital or acquired thrombophilia Stroke (< 1 month) Elective arthroplasty Hip, pelvis, or leg fracture Acute spinal cord injury (< 1 month) Prophylaxis Regimen Total Risk Factor Score Risk Level Prophylaxis Regimen 0-1 Low Early ambulation 2 Moderate Order ONE of the following: *Sequential Compression Device (SCD) *Heparin 5000 units SQ BID 3-4 Higher Order ONE of the following medications: *Heparin 5000 units SQ TID *Enoxaparin/Lovenox 40 mg SQ daily (WT < 150 kg, CrCl > 30 mL/min) *Enoxaparin/Lovenox 30 mg SQ daily (WT < 150 kg, CrCl > 10-29 mL/min) *Enoxaparin/Lovenox 30 mg SQ BID (WT < 150 kg, CrCl > 30 mL/min) AND/OR *Sequential Compression Device (SCD) 5 or more Highest Order ONE of the following medications: *Heparin 5000 units SQ TID (Preferred with Epidurals) *Enoxaparin/Lovenox 40 mg SQ daily (WT < 150 kg, CrCl > 30 mL/min) *Enoxaparin/Lovenox 30 mg SQ daily (WT < 150 kg, CrCl > 10-29 mL/min) *Enoxaparin/Lovenox 30 mg SQ BID (WT < 150 kg, CrCl > 30 mL/min) AND *Sequential Compression Device (SCD) Assessment and Plan Problem List: (1) CVA (cerebral vascular accident) ICD Code: I63.9 - Cerebral infarction, unspecified (2) Encephalopathy ICD Code: G93.40 - Encephalopathy, unspecified (3) UTI (urinary tract infection) ICD Code: N39.0 - Urinary tract infection, site not specified (4) Renal insufficiency ICD Code: N28.9 - Disorder of kidney and ureter, unspecified (5) HTN (hypertension) ICD Code: I10 - Essential (primary) hypertension Assessment and Plan A/P: 1. CVA: referred to ER by Dr. Rizzo for outpatient MRI 06/06/17 showing acute right occipital CVA and acute left MCA strokes. Will admit for further work up, anticoagulation w/ Coumadin/Heparin started, Neuro checks, Check Echo, Carotid US w/ hemodynamically significant narrowing both ICAs, potentially occluded right vertebral artery, images reviewed by me. Consult Vascular surgery for possible intervention. 2. Encephalopathy: underlying dementia w/ confusion, likely compounded by acute CVA and UTI. Neuro Checks. IVF for hydration. 3. UTI: U/a w/ UTI, start Rocephin IV, IVF for hydration, repeat labs in am. 4. EMMANUEL: Creatinine 1.21, previously 0.64 on 09/14/2016. UA with UTI as above, IVF for hydration, repeat labs in a.m. 5. HTN: Uncontrolled. In light of acute CVA, will allow for permissive HTN, antihypertensives for BP >220 systolic 6. DVT Prophylaxis: On Coumadin/Heparin 7. Social work for d/c planning as needed. 8. Case discussed w/ ER physician at length, labs/records/imaging reviewed by me. Physician Certification 2 Midnight Certification Type: Admission for Inpatient Services Order for Inpatient Services The services are ordered in accordance with Medicare regulations or non- Medicare payer requirements, as applicable. In the case of services not specified as inpatient-only, they are appropriately provided as inpatient services in accordance with the 2-midnight benchmark. Estimated LOS (days): 2 days is the estimated time the patient will need to remain in the hospital, assuming treatment plan goals are met and no additional complications. Post-Hospital Plan: Not yet determined Batsheva Walker MD Jun 08, 2017 19:32
[2017-06-08] MEDS ORDERED: GADODIAMIDE PF 287 MG/ML 20 ML VIAL (for RAD MRI) IVCONTRAST ONE (19:54)
--- NOTE | 2017-06-08 20:35 | RADRPT ---
EXAM DATE/TIME: 06/08/2017 19:34 [facility] COMPARISON: No previous studies available for comparison. INDICATIONS : CVA. MEDICAL HISTORY : Dementia. Cardiovascular disease Hypertension. COPD. SURGICAL HISTORY : Appendectomy. Coronary artery stent. Bladder repair. ENCOUNTER: Initial ACUITY: 1 day PAIN SCORE: 2/10 LOCATION: Bilateral cranial Please note a normal MRA of the brain does not entirely exclude the possibility of a small aneurysm, nor the possibility of distal intracranial vessel disease. TECHNIQUE: 3D time of flight MRA was performed. Source images, multiplanar STS MIP, and 3D volume MIP reconstru ctions were reviewed. FINDINGS: There is short segment luminal irregularity/moderate narrowing proximally of the right posterior cere bral artery, series 102 image 26. Similar findings are seen of the distal branches of the bilateral p osterior cerebral arteries. Patient has a diminutive right A-1 segment, most likely congenital/developmental. The anterior commun icating artery is well-developed and there is normal filling of the right A2 and distal segments. CONCLUSION: 1. Patchy luminal irregularity bilaterally of the posterior short arteries, likely on the basis of in tracranial atherosclerotic disease. 2. No acute vessel thrombosis demonstrated. No aneurysm. 3. Congenitally diminutive right A-1 segment. Please see above. Juan R Lemons MD on June 08, 2017 at 20:29 Board Certified Radiologist. This report was verified electronically.
--- NOTE | 2017-06-08 20:40 | RADRPT ---
EXAM DATE/TIME: 06/08/2017 19:34 [facility] COMPARISON: No previous studies available for comparison. INDICATIONS : Stroke. CONTRAST: 20 cc Omniscan (gadodiamide) IV MEDICAL HISTORY : Dementia. Chronic obstructive pulmonary disease. Hypertension. CAD. SURGICAL HISTORY : Appendectomy. Bladder repair. ENCOUNTER: Initial ACUITY: 1 day PAIN SCORE: 0/10 LOCATION: cranial Percent stenosis is calculated using the diameter of the stenotic region over the diameter of the nor mal distal internal carotid artery. TECHNIQUE: Bolus infused MRA of the extracranial circulation was performed using a neurovascular coil. Post pro cessing was performed including rotating subvolume maximum intensity projections of each carotid cathy ry, rotating full volume maximum intensity projections of both carotid arteries, sagittal and coronal sliding thin slab reformations of each carotid artery, and left oblique sliding thin slab reformatio n through the aortic arch to include the origin of the arch branch vessels. FINDINGS: AORTIC ARCH: There is a three vessel origin of the great vessels from the aorta. No evidence of ostial narrowing. RIGHT CAROTID: Short segment moderate narrowing is seen of the distal CCA, bulb and proximal ICA, probably around 50 %. LEFT CAROTID: Short segment high-grade narrowing of the proximal ICA, probably around 70%. VERTEBRALS: Mildly dominant left arterial. Both vertebral arteries are patent. CONCLUSION: 1. Short segment stenosis of the proximal left internal carotid artery, probably hemodynamically sign ificant. 2. Despite ultrasound findings, no definite hemodynamically significant narrowing on the right. There is an approximately 50% stenosis at the bifurcation. 3. Vertebral arteries are patent. Juan R Lemons MD on June 08, 2017 at 20:35 Board Certified Radiologist. This report was verified electronically.
[2017-06-08] MEDS ORDERED: SODIUM CHLORIDE 0.9% FLUSH 10 ML FLUSH IV FLUSH SCH (21:00)
[2017-06-08] MEDS: ATORVASTATIN 10 MG TAB PO SCH (22:22)
[2017-06-08] MEDS: cefTRIAXone INJ 1,000 MG in SODIUM CHLORIDE 0.9% INJ 100 ML IV SCH (22:25)
--- NOTE | 2017-06-08 23:33 | EKG ---
Date Performed: 06/08/2017 Time Performed: 15:39:29 PTAGE: 76 years EKG: Sinus rhythm WITH OCCASIONAL VENTRICULAR PREMATURE COMPLEXES POSSIBLE LEFT ATRIAL ENLARGEMENT NONSPECIFIC T-WAVE ABNORMALITY BORDERLINE ECG INTERPRETATION BASED ON A DEFAULT AGE OF 40 YEARS Compared to PREVIOUS TRACING , ST/T wave changes are less prominent DOCTOR: Bobby Hines Interpretating Date/Time 06/08/2017 23:31:59
[2017-06-09] VITALS (11 sets, daily range): BP systolic 134–192; BP diastolic 64–97; PULSE 90–109; RESP 18–20; TEMP 97.2–99.1; O2SAT 97–99
[2017-06-09 00:15] LABS: TROPONIN I LESS THAN 0.02 NG/ML (0.02-0.05)
[2017-06-09 05:25] LABS: AUTOMATED NEUTROPHIL # 5.7 TH/MM3 (1.8-7.7); BASOPHIL # 0.2 TH/MM3 (0-0.2); BASOPHIL % 2.6 % (0.0-2.0); EOSINOPHIL # 0.4 TH/MM3 (0-0.4); HEMATOCRIT 40.8 % (35.0-46.0); HEMOGLOBIN 13.9 GM/DL (11.6-15.3); LYMPH % 24.8 % (9.0-44.0); LYMPHOCYTE # 2.3 TH/MM3 (1.0-4.8); MEAN CELL VOLUME 85.6 FL (80.0-100.0); MEAN CORPUSCULAR HEMOGLOBIN 29.2 PG (27.0-34.0); MEAN CORPUSCULAR HGB CONC 34.1 % (32.0-36.0); MEAN PLATELET VOLUME 9.1 FL (7.0-11.0); MONO % 6.3 % (0.0-8.0); MONOCYTE # 0.6 TH/MM3 (0-0.9); NEUT % 62.3 % (16.0-70.0); PLATELET COUNT 201 TH/MM3 (150-450); RED BLOOD COUNT 4.77 MIL/MM3 (4.00-5.30); RED CELL DISTRIBUTION WIDTH 13.5 % (11.6-17.2); WHITE BLOOD COUNT 9.1 TH/MM3 (4.0-11.0)
[2017-06-09 05:27] LABS: INTERNATIONAL NORMALIZED RATIO 1.1 RATIO; PROTHROMBIN TIME - PATIENT 10.8 SEC (9.8-11.6)
[2017-06-09 05:51] LABS: ALBUMIN 3.5 GM/DL (3.4-5.0); ALT (GPT) 10 U/L (10-53); AST (GOT) 16 U/L (15-37); BLOOD UREA NITROGEN 17 MG/DL (7-18); CALCIUM 9.1 MG/DL (8.5-10.1); CHLORIDE 106 MEQ/L (98-107); CHOLESTEROL 126 MG/DL (120-200); CREATININE 0.82 MG/DL (0.50-1.00); GLOMERULAR FILTRATION RATE 67 ML/MIN (>89); GLUCOSE,RANDOM 87 MG/DL (74-106); MAGNESIUM 2.2 MG/DL (1.5-2.5); SODIUM (NA) 143 MEQ/L (136-145); TRIGLYCERIDES 182 MG/DL (42-150)
[2017-06-09 05:57] LABS: ALKALINE PHOSPHATASE 92 U/L (45-117); CHOLESTEROL/ HDL RATIO 2.61 RATIO; FREE T4 1.43 NG/DL (0.76-1.46); HDL CHOLESTEROL 48.2 MG/DL (40.0-60.0); LDL CHOLESTEROL 41 MG/DL (0-99); TOTAL BILIRUBIN ADULT 0.5 MG/DL (0.2-1.0); TOTAL PROTEIN 7.8 GM/DL (6.4-8.2); TROPONIN I LESS THAN 0.02 NG/ML (0.02-0.05)
[2017-06-09] MEDS ORDERED: SODIUM CHLORIDE 0.9% FLUSH 10 ML FLUSH IV FLUSH PRN (08:15)
[2017-06-09] MEDS ORDERED: GLUCAGON 1 MG/ML VIAL OTHER PRN (08:15)
[2017-06-09] MEDS ORDERED: DEXTROSE 50% IN WATER 50 ML VIAL(D50) IV PUSH PRN (08:15)
--- NOTE | 2017-06-09 08:25 | MB ---
cc: Conner Valenzuela MD, PhD DATE: 06/09/2017 REASON FOR CONSULTATION: Stroke. HISTORY OF PRESENT ILLNESS: Ms. Toledo is a very nice 76-year-old woman, patient of Dr. Terrance Rizzo as an outpatient, who developed some difficulty with her gait with shuffling of her gait. She was tried on Sinemet apparently with no benefit. An MRI of the brain was obtained for further evaluation as an outpatient and this revealed strokes which were acute, one in the right occipital lobe and one left MCA. They appear to be embolic, so she was referred to the hospital to start Coumadin and subcutaneous heparin, as well as perform Holter monitor, telemetry and echocardiogram. The patient denies any new symptoms ulcers, although she has been noted to be weak on the right side. PAST MEDICAL AND SURGICAL HISTORY: She has a long history of gait disorder, possible parkinsonism, progressive weakness, dementia, COPD, coronary artery disease, hypertension, appendectomy, cardiac stent, bladder repair, hysterectomy. CURRENT MEDICATIONS: 1. Coumadin 5 mg daily. 2. Norvasc 10 mg daily. 3. Lipitor 10 mg daily. 4. Ceftriaxone. 5. Heparin 5000 units subcutaneous b.i.d. NEUROLOGICAL EXAMINATION: VITAL SIGNS: Blood pressure is 182/80, pulse 90, respiratory rate is 20, temperature 97.6 degrees. HIGHER CORTICAL FUNCTION: Alert, oriented, poor recall. She has remote memory disturbance as well. Speech is fluent. No aphasia. CRANIAL NERVES: Normal. MOTOR EXAM: She is weak in the right arm and right leg 4+/5 proximally and distally, has normal strength left. She has got diminished fine motor skills in the right hand. REFLEXES: 2+, symmetric. IMAGING STUDIES: She did have an MRA done of the head, which shows patchy luminal irregularity bilaterally of the posterior short arteries due to intracranial atherosclerosis. No aneurysm seen. MRA neck demonstrates probable hemodynamically significant left internal carotid artery stenosis over a short segment. No definite hemodynamic lesion on the right, probably 50% narrowing on the right. She did have a carotid ultrasound showing diffuse atherosclerosis in both carotid arteries with what was thought to be hemodynamic stenosis bilaterally. LABORATORY DATA: The white count is 9100; hemoglobin 13.9; hematocrit 40%; platelet count is 201,000. The INR 1.1, PT 10.8, APTT 24. Sodium is 143, potassium 3.3, chloride 106, CO2 is 26. The BUN is 17, creatinine 0.82, GFR 67, glucose is 87. AST is 16, ALT is 10. LDL 41, cholesterol 126, HDL 48. IMPRESSION AND RECOMMENDATIONS: The patient has what appears to be embolic strokes based on the recent MRI scan, one in the left middle cerebral artery territory and also one in the right occipital lobe. I agree with anticoagulation, which is currently being accomplished. I would recommend increasing the INR between 2-3. There is a history of a possible left carotid stenosis on the MR angiogram. I would like to get a CT angiogram for further characterization of this. If this confirms significant stenosis, would recommend vascular surgery evaluation. Conner Valenzuela MD, PhD JEFFREY/DES , 07:59 AM , 08:24 AM
[2017-06-09] MEDS: SODIUM CHLORIDE 0.9% FLUSH 10 ML FLUSH IV FLUSH SCH ×2 (08:38→20:54)
[2017-06-09] MEDS: HEPARIN SODIUM - SQ 10,000 UNITS/ML VIAL SQ SCH ×2 (08:38→20:55)
[2017-06-09] MEDS: SODIUM CHLOR 0.9% 1000 ML INJ 1,000 ML IV SCH ×2 (08:39→23:06)
--- NOTE | 2017-06-09 10:00 | PD.CAR.PN ---
CVT Progress Note Subjective/Hospital Course: Full consult dictated Patient has very tight left internal carotid artery stenosis by MRA. CTA pending Fully agree with Dr. Valenzuela In face of acute ischemic bilateral infarcts should patient have no comorbidities preclusive of surgery, I will schedule her for carotid endarterectomy probably in about 2 weeks Thanks J Objective: Vital Signs Date Time Temp Pulse Resp B/P (MAP) Pulse Ox O2 Delivery O2 Flow Rate FiO2 06/09/17 08:20 98 21 06/09/17 08:02 97.2 99 19 192/97 (128) 98 06/09/17 04:00 97.6 90 20 182/80 (114) 98 06/09/17 00:20 97.5 92 18 189/87 (121) 98 06/08/17 21:10 98.0 102 20 194/91 (125) 99 06/08/17 20:42 06/08/17 20:34 90 16 160/86 (110) 98 Room Air 06/08/17 19:03 98 17 170/83 (112) 98 Room Air 06/08/17 19:01 108 18 181/91 (121) 98 Room Air 06/08/17 18:32 107 18 196/88 (124) 99 Room Air 06/08/17 18:32 99 Room Air 06/08/17 15:27 105 18 160/66 (97) 99 Room Air 06/08/17 14:51 98.1 100 18 132/70 (90) 98 Labs: Laboratory Tests Test 06/08/17 23:38 06/09/17 04:51 Total Creatine Kinase 26 U/L (26-192) 28 U/L (26-192) Troponin I LESS THAN 0.02 NG/ML LESS THAN 0.02 NG/ML White Blood Count 9.1 TH/MM3 (4.0-11.0) Red Blood Count 4.77 MIL/MM3 (4.00-5.30) Hemoglobin 13.9 GM/DL (11.6-15.3) Hematocrit 40.8 % (35.0-46.0) Mean Corpuscular Volume 85.6 FL (80.0-100.0) Mean Corpuscular Hemoglobin 29.2 PG (27.0-34.0) Mean Corpuscular Hemoglobin Concent 34.1 % (32.0-36.0) Red Cell Distribution Width 13.5 % (11.6-17.2) Platelet Count 201 TH/MM3 (150-450) Mean Platelet Volume 9.1 FL (7.0-11.0) Neutrophils (%) (Auto) 62.3 % (16.0-70.0) Lymphocytes (%) (Auto) 24.8 % (9.0-44.0) Monocytes (%) (Auto) 6.3 % (0.0-8.0) Eosinophils (%) (Auto) 4.0 % (0.0-4.0) Basophils (%) (Auto) 2.6 % (0.0-2.0) Neutrophils # (Auto) 5.7 TH/MM3 (1.8-7.7) Lymphocytes # (Auto) 2.3 TH/MM3 (1.0-4.8) Monocytes # (Auto) 0.6 TH/MM3 (0-0.9) Eosinophils # (Auto) 0.4 TH/MM3 (0-0.4) Basophils # (Auto) 0.2 TH/MM3 (0-0.2) CBC Comment DIFF FINAL Differential Comment Prothrombin Time 10.8 SEC (9.8-11.6) Prothromb Time International Ratio 1.1 RATIO Blood Urea Nitrogen 17 MG/DL (7-18) Creatinine 0.82 MG/DL (0.50-1.00) Random Glucose 87 MG/DL (74-106) Total Protein 7.8 GM/DL (6.4-8.2) Albumin 3.5 GM/DL (3.4-5.0) Calcium Level 9.1 MG/DL (8.5-10.1) Phosphorus Level 3.0 MG/DL (2.5-4.9) Magnesium Level 2.2 MG/DL (1.5-2.5) Alkaline Phosphatase 92 U/L (45-117) Aspartate Amino Transf (AST/SGOT) 16 U/L (15-37) Alanine Aminotransferase (ALT/SGPT) 10 U/L (10-53) Total Bilirubin 0.5 MG/DL (0.2-1.0) Sodium Level 143 MEQ/L (136-145) Potassium Level 3.3 MEQ/L (3.5-5.1) Chloride Level 106 MEQ/L (98-107) Carbon Dioxide Level 26.0 MEQ/L (21.0-32.0) Anion Gap 11 MEQ/L (5-15) Estimat Glomerular Filtration Rate 67 ML/MIN (>89) Triglycerides Level 182 MG/DL (42-150) Cholesterol Level 126 MG/DL (120-200) LDL Cholesterol 41 MG/DL (0-99) HDL Cholesterol 48.2 MG/DL (40.0-60.0) Cholesterol/HDL Ratio 2.61 RATIO Free Thyroxine 1.43 NG/DL (0.76-1.46) Thyroid Stimulating Hormone 3rd Gen 1.830 uIU/ML (0.358-3.740) Result Diagram: 06/09/17 0451 06/09/17 0451 Kalli Dickinson MD Jun 09, 2017 10:00
--- NOTE | 2017-06-09 10:04 | HHI.PR ---
Subjective Remarks Patient reports she is feeling okay today. Denies headache. Objective Vitals Vital Signs Date Time Temp Pulse Resp B/P (MAP) Pulse Ox O2 Delivery O2 Flow Rate FiO2 06/09/17 08:20 98 21 06/09/17 08:02 97.2 99 19 192/97 (128) 98 06/09/17 04:00 97.6 90 20 182/80 (114) 98 06/09/17 00:20 97.5 92 18 189/87 (121) 98 06/08/17 21:10 98.0 102 20 194/91 (125) 99 06/08/17 20:42 06/08/17 20:34 90 16 160/86 (110) 98 Room Air 06/08/17 19:03 98 17 170/83 (112) 98 Room Air 06/08/17 19:01 108 18 181/91 (121) 98 Room Air 06/08/17 18:32 107 18 196/88 (124) 99 Room Air 06/08/17 18:32 99 Room Air 06/08/17 15:27 105 18 160/66 (97) 99 Room Air 06/08/17 14:51 98.1 100 18 132/70 (90) 98 Result Diagram: 06/09/17 0451 06/09/17 0451 Imaging Last Impressions Neck Magnetic Resonance Angiography [id number]/08/[id number] Signed Impressions: Service Date/Time: Thursday, June 08, 2017 19:34 - CONCLUSION: 1. Short segment stenosis of the proximal left internal carotid artery, probably hemodynamically significant. 2. Despite ultrasound findings, no definite hemodynamically significant narrowing on the right. There is an approximately 50%% stenosis at the bifurcation. 3. Vertebral arteries are patent. Juan R Lemons MD Head Magnetic Resonance Angiography [id number]/08/171728 Signed Impressions: Service Date/Time: Thursday, June 08, 2017 19:34 - CONCLUSION: 1. Patchy luminal irregularity bilaterally of the posterior short arteries, likely on the basis of intracranial atherosclerotic disease. 2. No acute vessel thrombosis demonstrated. No aneurysm. 3. Congenitally diminutive right A-1 segment. Please see above. Juan R Lemons MD Carotid Artery Ultrasound 06/08/17 0000 Signed Impressions: Service Date/Time: Thursday, June 08, 2017 17:50 - CONCLUSION: 1. Diffuse atherosclerotic plaque of both carotid arteries and with hemodynamically significant narrowing in both ICAs. 2. Potentially occluded right vertebral artery. There is antegrade flow in the left vertebral artery. Juan R Lemons MD Objective Remarks GENERAL: This is a well-nourished, well-developed patient, in no apparent distress. CARDIOVASCULAR: Normal rate and regular rhythm without murmurs, gallops, or rubs. RESPIRATORY: Good respiratory efforts. Breath sounds equal and clear to auscultation bilaterally. GASTROINTESTINAL: Abdomen soft, non-tender, non-distended. Normal active bowel sounds MUSCULOSKELETAL: Extremities without cyanosis, or edema. NEURO: Alert & Oriented x4 to person, place, time, situation. 4+ out of 5 right upper and lower extremities. Generalized weakness. PSYCH: Appropriate mood and affect. A/P Problem List: (1) CVA (cerebral vascular accident) ICD Code: I63.9 - Cerebral infarction, unspecified (2) Encephalopathy ICD Code: G93.40 - Encephalopathy, unspecified (3) UTI (urinary tract infection) ICD Code: N39.0 - Urinary tract infection, site not specified (4) Renal insufficiency ICD Code: N28.9 - Disorder of kidney and ureter, unspecified (5) HTN (hypertension) ICD Code: I10 - Essential (primary) hypertension Assessment and Plan 1. CVA: referred to ER by Dr. Rizzo for outpatient MRI 06/06/17 showing acute right occipital CVA and acute left MCA strokes. Continue anticoagulation w/ Coumadin/Heparin started, Neuro checks, Check Echo, Carotid US w/ hemodynamically significant narrowing both ICAs, potentially occluded right vertebral artery. Vascular surgery consulted 2. Encephalopathy: underlying dementia w/ confusion, likely compounded by acute CVA and UTI. Neuro Checks. IVF for hydration. 3. UTI: U/a w/ UTI, start Rocephin IV, IVF for hydration, repeat labs in am. 4. EMMANUEL: Creatinine 1.21, previously 0.64 on 09/14/2016. UA with UTI as above, IVF for hydration, repeat labs in a.m. 5. HTN: Uncontrolled. In light of acute CVA, will allow for permissive HTN, antihypertensives for BP >220 systolic 6. DVT Prophylaxis: On Coumadin/Heparin Alea Bowser MD Jun 09, 2017 10:04
[2017-06-09 10:31] LABS: HEMOGLOBIN A1C 5.6 % (4.3-6.0)
[2017-06-09] MEDS: INSULIN ASPART SUPPLEMENTAL SCALE SQ SCH ×3 (11:52→20:55)
[2017-06-09] MEDS: WARFARIN SOD 5 MG TAB PO SCH (16:48)
--- NOTE | 2017-06-09 17:37 | MB ---
cc: Kalli Dickinson MD, Slobodan MD DATE: 06/09/2017 REASON FOR CONSULTATION: Left internal carotid artery stenosis, bilateral ischemic strokes, COPD, coronary artery disease. HISTORY OF PRESENT ILLNESS: This 76-year-old lady is a known patient of Dr. Rizzo and she has been noted lately to have some difficulty walking with shuffling. She also had some weakness and forgetfulness. This became fairly obvious. The patient is now admitted to the hospital and is found to have probably 70-80% left internal carotid artery stenosis by MRA and acute ischemic strokes in the right and left brain hemisphere. Hence, the consultation. PAST MEDICAL HISTORY: COPD, coronary artery disease with stent placements, hypertension and Parkinsonism. PAST SURGICAL HISTORY: Appendectomy, hysterectomy and bladder pull up as well as above noted stent placement. MEDICATIONS: Can be found on the record. Include - 1. Coumadin 2. Lipitor. 3. Norvasc. SOCIAL HISTORY: The patient smokes 1 pack a day and drinks socially. PHYSICAL EXAMINATION: GENERAL: Reveals a 76-year-old lady. HEENT: Normocephalic. No trauma to the head. Pupils equal, reactive. Extraocular muscles intact. NECK: Bilateral carotid pulses and bilateral faint bruits. CHEST: Bilateral breath sounds quite decreased over both lung justice with some barrel -chested changes consistent with COPD. Some degree of pulmonary cachexia with loss of chest wall musculature. HEART: Regular rhythm. ABDOMEN: Soft. No rebound, no guarding, no masses. EXTREMITIES: The patient has bilateral femoral pulses and popliteal pulses by palpation, dorsalis pedis by palpation, posterior tibial by Doppler. No signs of acute vascular deficit. NEUROLOGIC: The patient at this point has no neurologic deficit. Motoric strength is bilateral normal, Cranial nerves 2-12 are normal and the deep tendon reflexes appear to be normal. 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 IMPRESSION AND RECOMMENDATIONS: I reviewed laboratory and diagnostic procedures. According to ultrasound and MRA, this patient does have significant left internal carotid artery stenosis. I agree with Dr. Valenzuela that CTA is mandatory here because it is sort of fuzzy looking there on MRI. If the CTA confirms this stenosis, the patient clearly should have carotid endarterectomy all things equal provided she qualifies from a comorbidity point of view. On the other hand if the CTA reveals lesser degree of stenosis he can be safely assumed that patients acute ischemic strokes are due to emboli resulting from atrial fibrillation and surgery would not be an appropriate choice. We will see what CTA shows and correlate this with clinical symptoms and make the final decision I thank you much for this referral. MD MACKENZIE Ray/ , 05:15 PM , 05:35 PM RICHAR
[2017-06-09] MEDS ORDERED: IOHEXOL 350 MG/ML 10 ML VIAL (for RAD DIAG) IVCONTRAST ONE (17:45)
--- NOTE | 2017-06-09 18:23 | RADRPT ---
EXAM DATE/TIME: 06/09/2017 17:35 [facility] COMPARISON: No previous studies available for comparison. INDICATIONS : Altered mental status; rule out ischemic stroke. IV CONTRAST: 80 cc Omnipaque 350 (iohexol) IV ; Cumulative dose for multiple exams. RADIATION DOSE: 6.89 CTDIvol (mGy) ; Combined studies MEDICAL HISTORY : Cardiovascular disease. Hypertension. Chronic obstructive pulmonary disease. SURGICAL HISTORY : Hysterectomy. ENCOUNTER: Initial ACUITY: 1 day PAIN SCALE: 0/10 LOCATION: cranial TECHNIQUE: Volumetric scanning was performed using a multi-row detector CT scanner. The data was post processed with a variety of visualization algorithms including full volume maximum intensity projection, multi -planar sliding thin slab reformation, curved planar reformation, and surface rendering techniques. Using automated exposure control and adjustment of the mA and/or kV according to patient size, radiat ion dose was kept as low as reasonably achievable to obtain optimal diagnostic quality images. DICO M format image data is available electronically for review and comparison. FINDINGS: There is excellent visualization of the major intracranial arteries out to the second-order branch ve ssels. There is no evidence for aneurysm, vessel truncation or stenosis, and no evidence for vascula r malformation. Persistent circulation right posterior cerebral artery. Intraluminal irregularities and mild na rrowing of the right proximal posterior cerebral artery. Anterior communicating artery. No aneurysm. No large vessel stenosis . CONCLUSION: 1. Atherosclerotic changes of the right proximal posterior cerebral artery. 2. No large vessel stenosis or aneurysm. Florentin Castro MD on June 09, 2017 at 18:16 Board Certified Radiologist. This report was verified electronically.
--- NOTE | 2017-06-09 18:43 | RADRPT ---
EXAM DATE/TIME: 06/09/2017 17:35 [facility] COMPARISON: No previous studies available for comparison. INDICATIONS : Altered mental status; possible ischemic stroke. IV CONTRAST: 80 cc Omnipaque 350 (iohexol) IV ; Cumulative dose for multiple exams. RADIATION DOSE: 6.89 CTDIvol (mGy) ; Combined studies MEDICAL HISTORY : Cardiovascular disease. Hypertension. Chronic obstructive pulmonary disease. SURGICAL HISTORY : Hysterectomy. ENCOUNTER: Initial ACUITY: 1 day PAIN SCALE: 0/10 LOCATION: CTA carotid Elevated flow velocities and ICA/CCA ratios have been found to correlate with increased degrees of vessel stenosis, calculated as percentage of diameter relative to a normal segment of distal ICA/CCA. TECHNIQUE: Volumetric scanning was performed using a multirow detector CT scanner. The data was post processed with a variety of visualization algorithms including full-volume maximum intensity projection, multip lanar sliding thin-slab reformation, curved-planar reformation, and surface-rendering techniques. Us ing automated exposure control and adjustment of the mA and/or kV according to patient size, radiatio n dose was kept as low as reasonably achievable to obtain optimal diagnostic quality images. DICOM f ormat image data is available electronically for review and comparison. FINDINGS: AORTIC ARCH: There is a three-vessel origin of the great vessels from the aorta. Mild ostial narrowing. Atheroscle rotic changes of the thoracic aorta. RIGHT CAROTID: The common carotid artery is intact. Calcified plaque in the origin of the right internal carotid art jassi suggesting a 50% stenosis. The external carotid artery is intact. LEFT CAROTID: The common carotid artery is intact. Calcified plaque in the carotid bulbs with mild narrowing in the 30-40% range. The external carotid artery is intact. VERTEBRALS: The vertebral arteries have a symmetric diameter. No stenotic lesions are seen. CONCLUSION: 1. Mild narrowing of each internal carotid artery but no hemodynamically significant stenosis. Florentin Castro MD on June 09, 2017 at 18:36 Board Certified Radiologist. This report was verified electronically.
[2017-06-09] MEDS: cefTRIAXone INJ 1,000 MG in SODIUM CHLORIDE 0.9% INJ 100 ML IV SCH (20:54)
[2017-06-09] MEDS: ATORVASTATIN 10 MG TAB PO SCH (20:55)
[2017-06-10] VITALS (9 sets, daily range): BP systolic 109–182; BP diastolic 56–84; PULSE 92–104; RESP 17–20; TEMP 97.4–98.6; O2SAT 95–99
[2017-06-10 06:41] LABS: CHOLESTEROL/ HDL RATIO 2.43 RATIO; HDL CHOLESTEROL 48.8 MG/DL (40.0-60.0)
[2017-06-10] MEDS: INSULIN ASPART SUPPLEMENTAL SCALE SQ SCH ×4 (07:49→21:00)
--- NOTE | 2017-06-10 08:48 | HHI.PR ---
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 No evidence of significant carotid artery stenosis on CTA. I suspect the strokes are embolic and therefore continue coumadin with INR 2-3. Because she is more lethargic this am I will order CT brain to be sure is no hemorrhage in the stroke Diagnosis/Plan: Subjective Subjective Comments No acute events reported Active Medications Current Medications Medications (Trade) Dose Ordered Sig/Tania Route Start Time Stop Time Status Last Admin (Lipitor) 10 mg HS PO 06/08/17 21:00 06/09/17 20:55 (Heparin Inj) 5,000 units Q12HR SQ 06/08/17 17:00 06/09/17 20:55 (Norvasc) 10 mg DAILY PO 06/09/17 09:00 06/09/17 08:38 (Sandra-Colace) 1 tab BID PRN PO 06/08/17 16:30 (Coumadin) 5 mg DAILY@1600 PO 06/09/17 16:00 06/09/17 16:48 Ceftriaxone Sodium 1000 mg/ Sodium Chloride 100 ml @ 200 mls/hr Q24H IV 06/08/17 21:00 06/09/17 20:54 (NS Flush) 2 ml BID IV FLUSH 06/09/17 09:00 06/09/17 08:38 (NS Flush) 2 ml UNSCH PRN IV FLUSH 06/09/17 08:15 Sodium Chloride 1,000 ml @ 70 mls/hr [id number] IV 06/09/17 08:00 06/09/17 23:06 (NovoLOG SUPPLEMENTAL SCALE) 1 ACHS SQ 06/09/17 12:00 (D50w (Vial) Inj) 50 ml UNSCH PRN IV PUSH 06/09/17 08:15 (Glucagon Inj) 1 mg UNSCH PRN OTHER 06/09/17 08:15 Allergies Allergies Coded Allergies No Known Allergies (Verified09/13/16) Exam I&O / VS Vital Signs Date Time Temp Pulse Resp B/P (MAP) Pulse Ox O2 Delivery O2 Flow Rate FiO2 06/10/17 07:34 98.1 104 18 182/84 (116) 97 06/10/17 04:44 97.5 97 20 164/75 (104) 95 06/10/17 00:30 97.4 98 18 109/56 (73) 99 06/09/17 23:55 105 06/09/17 21:25 98 21 06/09/17 20:00 99.1 109 20 134/86 (102) 98 06/09/17 15:42 98.2 101 20 137/64 (88) 99 06/09/17 13:37 108 06/09/17 11:28 97.7 102 20 140/70 (93) 97 06/09/17 10:14 98 Exam Comments lethargic but arouses and follow commands. speech dysarthric CN intact MOTOR 4/5 RUE, 5/5 LUE Objective Radiology Results CTA neck--no significant carotid stenosis CTA brain--no large vessel occlusion Micro and Labs Laboratory Tests Test 06/10/17 05:05 Triglycerides Level 162 Cholesterol Level 119 LDL Cholesterol 38 HDL Cholesterol 48.8 Cholesterol/HDL Ratio 2.43 Date/Time Source Procedure Growth Status 06/08/17 18:42 Urine Clean Catch Urine Culture - Preliminary Gram Negative Dhaval Resulted Conner Valenzuela MD PhD Jun 10, 2017 08:48
[2017-06-10] MEDS: SODIUM CHLORIDE 0.9% FLUSH 10 ML FLUSH IV FLUSH SCH ×2 (09:00→21:12)
--- NOTE | 2017-06-10 09:21 | RADRPT ---
EXAM DATE/TIME: 06/10/2017 09:10 [facility] COMPARISON: MRA BRAIN W/O CONTRAST, June 08, 2017, 19:34. CTA BRAIN W 3D RECON, June 09, 2017, 17:35. CT BRAI N W/O CONTRAST, September 13, 2016, 14:29. INDICATIONS : General weakness. RADIATION DOSE: 34.34 CTDIvol (mGy) MEDICAL HISTORY : Hypertension. Chronic obstructive pulmonary disease. coronary artery disease SURGICAL HISTORY : Hysterectomy. stent placement ENCOUNTER: Initial ACUITY: 1 day PAIN SCALE: 0/10 LOCATION: Bilateral head TECHNIQUE: Multiple contiguous axial images were obtained of the head. Using automated exposure control and adj ustment of the mA and/or kV according to patient size, radiation dose was kept as low as reasonably a chievable to obtain optimal diagnostic quality images. DICOM format image data is available electro nically for review and comparison. FINDINGS: Remote right cerebellar lacunar infarct, diffuse atrophy, multiple thalamic and basal ganglia lacunar infarcts and periventricular lacunar infarcts again seen. There is moderate hypodensity in the bilat eral centrum semiovale and periventricular white matter, characteristic of chronic microvascular isch emic disease. There are no signs of intracranial hemorrhage, acute infarction, or mass. No fractures. CONCLUSION: Stable appearance of the brain. Mark Johnston MD on June 10, 2017 at 9:17 Board Certified Radiologist. This report was verified electronically.
[2017-06-10] MEDS: HEPARIN SODIUM - SQ 10,000 UNITS/ML VIAL SQ SCH ×2 (09:28→21:12)
--- NOTE | 2017-06-10 10:33 | PD.CAR.PN ---
CVT Progress Note Subjective/Hospital Course: Full consult dictated Patient has very tight left internal carotid artery stenosis by MRA. CTA pending Fully agree with Dr. Valenzuela In face of acute ischemic bilateral infarcts should patient have no comorbidities preclusive of surgery, I will schedule her for carotid endarterectomy probably in about 2 weeks Thanks J 06/10/2017 Patient with recurrent TIAs On CTA patient only has about 50% bilateral carotid stenosis and this is not hemodynamically significant The most likely source of patient's ischemic strokes is an embolic and therefore carotid endarterectomy is not indicated. We will sign off Patient will follow-up in my office in about 6 months Objective: Vital Signs Date Time Temp Pulse Resp B/P (MAP) Pulse Ox O2 Delivery O2 Flow Rate FiO2 06/10/17 09:55 92 06/10/17 07:34 98.1 104 18 182/84 (116) 97 06/10/17 04:44 97.5 97 20 164/75 (104) 95 06/10/17 00:30 97.4 98 18 109/56 (73) 99 06/09/17 23:55 105 06/09/17 21:25 98 21 06/09/17 20:00 99.1 109 20 134/86 (102) 98 06/09/17 15:42 98.2 101 20 137/64 (88) 99 06/09/17 13:37 108 06/09/17 11:28 97.7 102 20 140/70 (93) 97 Labs: Laboratory Tests Test 06/10/17 05:05 Triglycerides Level 162 MG/DL (42-150) Cholesterol Level 119 MG/DL (120-200) LDL Cholesterol 38 MG/DL (0-99) HDL Cholesterol 48.8 MG/DL (40.0-60.0) Cholesterol/HDL Ratio 2.43 RATIO Result Diagram: 06/09/17 0451 06/09/17 0451 Kalli Dickinson MD Jun 10, 2017 10:33
--- NOTE | 2017-06-10 11:08 | HHI.PR ---
Subjective Remarks Patient reports she is feeling ok today. Objective Vitals Vital Signs Date Time Temp Pulse Resp B/P (MAP) Pulse Ox O2 Delivery O2 Flow Rate FiO2 06/10/17 09:55 92 06/10/17 07:34 98.1 104 18 182/84 (116) 97 06/10/17 04:44 97.5 97 20 164/75 (104) 95 06/10/17 00:30 97.4 98 18 109/56 (73) 99 06/09/17 23:55 105 06/09/17 21:25 98 21 06/09/17 20:00 99.1 109 20 134/86 (102) 98 06/09/17 15:42 98.2 101 20 137/64 (88) 99 06/09/17 13:37 108 06/09/17 11:28 97.7 102 20 140/70 (93) 97 I/O 06/09/17 06/09/17 06/09/17 06/10/17 06/10/17 06/10/17 06:59 14:59 22:59 06:59 14:59 22:59 Intake Total 863 ml Balance 863 ml Intake IV Total 863 ml # Voids 3 1 # Bowel Movements 0 Result Diagram: 06/09/17 0451 06/09/17 0451 Objective Remarks GENERAL: This is a well-nourished, well-developed patient, in no apparent distress. CARDIOVASCULAR: Normal rate and regular rhythm without murmurs, gallops, or rubs. RESPIRATORY: Good respiratory efforts. Breath sounds equal and clear to auscultation bilaterally. GASTROINTESTINAL: Abdomen soft, non-tender, non-distended. Normal active bowel sounds MUSCULOSKELETAL: Extremities without cyanosis, or edema. NEURO: Alert & Oriented x4 to person, place, time, situation. 4+ out of 5 right upper and lower extremities. Generalized weakness. PSYCH: Appropriate mood and affect. A/P Problem List: (1) CVA (cerebral vascular accident) ICD Code: I63.9 - Cerebral infarction, unspecified (2) Encephalopathy ICD Code: G93.40 - Encephalopathy, unspecified (3) UTI (urinary tract infection) ICD Code: N39.0 - Urinary tract infection, site not specified (4) Renal insufficiency ICD Code: N28.9 - Disorder of kidney and ureter, unspecified (5) HTN (hypertension) ICD Code: I10 - Essential (primary) hypertension Assessment and Plan 1. CVA: referred to ER by Dr. Rizzo for outpatient MRI 06/06/17 showing acute right occipital CVA and acute left MCA strokes. Continue anticoagulation w/ Coumadin/Heparin, Neuro checks, Check Echo, Carotid US w/ hemodynamically significant narrowing both ICAs, potentially occluded right vertebral artery. Vascular surgery evaluated the patient. CTA not consistent with significant stenosis. Source is likely embolic. Check 2d echo. Follow tele. 2. Encephalopathy: underlying dementia w/ confusion, likely compounded by acute CVA and UTI. Improved. 3. UTI: U/a w/ UTI, continue Rocephin IV 4. EMMANUEL: Creatinine 1.21, previously 0.64 on 09/14/2016. Resolved with IVF. 5. HTN: Continue Amlodipine. 6. DVT Prophylaxis: On Coumadin/Heparin Alea Bowser MD Jun 10, 2017 11:08
[2017-06-10] MEDS: SODIUM CHLOR 0.9% 1000 ML INJ 1,000 ML IV SCH (12:36)
[2017-06-10] MEDS: WARFARIN SOD 5 MG TAB PO SCH (17:40)
[2017-06-10] MEDS: cefTRIAXone INJ 1,000 MG in SODIUM CHLORIDE 0.9% INJ 100 ML IV SCH (21:12)
[2017-06-10] MEDS: ATORVASTATIN 10 MG TAB PO SCH (21:12)
[2017-06-11] VITALS (10 sets, daily range): BP systolic 119–175; BP diastolic 59–97; PULSE 62–107; RESP 16–20; TEMP 97.4–98.3; O2SAT 95–99
[2017-06-11] MEDS: INSULIN ASPART SUPPLEMENTAL SCALE SQ SCH ×4 (08:00→21:00)
[2017-06-11] MEDS: DOCUSATE SODIUM 50 MG/SENNA 8.6 MG TAB PO PRN (08:34)
[2017-06-11] MEDS: HEPARIN SODIUM - SQ 10,000 UNITS/ML VIAL SQ SCH (08:34)
[2017-06-11] MEDS: SODIUM CHLORIDE 0.9% FLUSH 10 ML FLUSH IV FLUSH SCH ×2 (08:35→22:17)
[2017-06-11 08:54] LABS: HEMATOCRIT 39.2 % (35.0-46.0); HEMOGLOBIN 13.4 GM/DL (11.6-15.3); MEAN CELL VOLUME 85.2 FL (80.0-100.0); MEAN CORPUSCULAR HEMOGLOBIN 29.1 PG (27.0-34.0); MEAN CORPUSCULAR HGB CONC 34.1 % (32.0-36.0); MEAN PLATELET VOLUME 9.4 FL (7.0-11.0); PLATELET COUNT 184 TH/MM3 (150-450); RED CELL DISTRIBUTION WIDTH 13.5 % (11.6-17.2); WHITE BLOOD COUNT 8.5 TH/MM3 (4.0-11.0)
[2017-06-11 09:00] LABS: INTERNATIONAL NORMALIZED RATIO 3.9 RATIO; PROTHROMBIN TIME - PATIENT 39.5 SEC (9.8-11.6)
[2017-06-11 09:30] LABS: BICARBONATE 25.6 MEQ/L (21.0-32.0); CALCIUM 9.1 MG/DL (8.5-10.1); CREATININE 0.83 MG/DL (0.50-1.00)
[2017-06-11] MEDS ORDERED: POTASSIUM CHLORIDE 20 MEQ CONTROLLED RELEASE TAB PO ONE (15:30)
[2017-06-11] MEDS: LISINOPRIL 5 MG TAB PO SCH (16:07)
--- NOTE | 2017-06-11 19:16 | ECHRPT ---
Indication: CVA/TIA CONCLUSIONS Mildly dilated left ventricle. Wall thickness is normal. The left ventricular systolic function is low normal with an estimated ejection fraction of 50%. Mitral annular calcification is present. Mild mitral valve regurgitation. Aortic valve sclerosis is present. Trace aortic valve regurgitation. BP: / HR: Rhythm: MEASUREMENTS (Male / Female) Normal Values Technical Quality: 2D ECHO LV Diastolic Diameter PLAX 5.3 cm 4.2 - 5.9 / 3.9 - 5.3 cm LV Systolic Diameter PLAX 4.2 cm IVS Diastolic Thickness 0.8 cm 0.6 - 1.0 / 0.6 - 0.9 cm LVPW Diastolic Thickness 0.7 cm 0.6 - 1.0 / 0.6 - 0.9 cm LV Relative Wall Thickness 0.3 DOPPLER MR Peak Velocity 612.0 cm/s MR Peak Gradient 149.8 mmHg TR Peak Velocity 151.0 cm/s TR Peak Gradient 9.1 mmHg FINDINGS LEFT VENTRICLE Mildly dilated left ventricle. Wall thickness is normal. The left ventricular systolic function is low normal with an estimated ejection fraction of 50%. RIGHT VENTRICLE Normal right ventricular size and systolic function. LEFT ATRIUM The left atrial size is normal. RIGHT ATRIUM The right atrial size is normal. ATRIAL SEPTUM Normal atrial septal thickness without atrial level shunting by limited color doppler interrogation. AORTA The aortic root and proximal ascending aorta are normal in size on limited imaging. MITRAL VALVE Mitral annular calcification is present. Mild mitral valve regurgitation. AORTIC VALVE Aortic valve sclerosis is present. Trace aortic valve regurgitation. TRICUSPID VALVE Structurally normal tricuspid valve. No tricuspid valve stenosis or regurgitation. PULMONARY VALVE The pulmonary valve is not well visualized. VESSELS The inferior vena cava is normal in size. PERICARDIUM No pericardial effusion. Rony Mendez MD, FACC (Electronically Signed) Final Date:11 June 2017 19:15
--- NOTE | 2017-06-11 21:35 | HM ---
Date Performed: 06/08/2017 Time Performed: 21:17:00 HOOKUP DATE: 06/08/17 09:17:00 PM Fri ANALYSIS START TIME: 06/08/2017 9:22:00 PM ANALYSIS END TIME: 06/09/2017 9:26:00 PM PATIENT AGE: 76 PATIENT HEIGHT: 68 PATIENT WEIGHT: 100 DRUG LIST: ROOM # [id number] PATIENT DIAGNOSIS: DR. SENT TEST NARRATIVE: The patient's average heart rate was 100 BPM. Heart rates greater than 120 BPM were noted 1% of the time. No episodes of bradycardia were noted. No pauses exceeding 2.0 se conds were noted. 4408 ventricular ectopics, which represented 3% of the total beat count, were n oted. The highest ventricular ectopic frequency occurred from 03:00 PM to 04:00 PM Sat. During this time 495 VE(s) occurred. Ventricular ectopics were observed as 4353 isolated beat(s), as 26 couplet (s) and as 1 run(s). Some of the ventricular beats occurred in bigeminal cycles. No supraventric ular ectopics were noted. No episodes of ST depression (defined as -1.0 mm or more) were noted in channel 1. No episodes of ST depression (defined as -1.0 mm or more) were noted in channel 2. No e pisodes of ST depression (defined as -1.0 mm or more) were noted in channel 3. no diary maintained TEST INTERPRETATION: 1. Predominant underlying rhythm is sinus 2. NO pauses of > 2 sec noted 3. NO ventricular or supraventricular tachyarrythmias noted 4. Occasional PACs and PVCs noted Signed by : Wilder Hurley
[2017-06-11] MEDS: ATORVASTATIN 10 MG TAB PO SCH (22:17)
[2017-06-11] MEDS: cefTRIAXone INJ 1,000 MG in SODIUM CHLORIDE 0.9% INJ 100 ML IV SCH (22:17)
[2017-06-12] VITALS: BP 116/69; PULSE 81; RESP 18; TEMP 98.4; O2SAT 100
[2017-06-12 04:00] VITALS: BP 138/64; PULSE 79; PULSE 83; RESP 18; TEMP 97.3; O2SAT 95
[2017-06-12 08:00] VITALS: BP 128/73; PULSE 83; RESP 17; TEMP 97.5; O2SAT 98
[2017-06-12] MEDS: INSULIN ASPART SUPPLEMENTAL SCALE SQ SCH ×4 (08:00→21:00)
[2017-06-12] MEDS: LISINOPRIL 5 MG TAB PO SCH (10:16)
[2017-06-12] MEDS: SODIUM CHLORIDE 0.9% FLUSH 10 ML FLUSH IV FLUSH SCH ×2 (10:16→21:41)
[2017-06-12 12:00] VITALS: BP 111/57; PULSE 94; RESP 17; TEMP 97.6; O2SAT 99
[2017-06-12 16:00] VITALS: BP 110/56; PULSE 71; RESP 17; TEMP 98.2; O2SAT 98
--- NOTE | 2017-06-12 18:50 | HHI.PR ---
Subjective Remarks Coumadin is hypertherapeutic today. Patient has no new complaints. At discharge she will need a [place] [facility] facility. Not stable for discharge secondary to hypertherapeutic INR. Objective Vital Signs Date Time Temp Pulse Resp B/P (MAP) Pulse Ox O2 Delivery O2 Flow Rate FiO2 06/12/17 12:00 97.6 94 17 111/57 (75) 99 06/12/17 08:00 97.5 83 17 128/73 (91) 98 06/12/17 04:00 97.3 83 18 138/64 (88) 95 06/12/17 04:00 79 06/12/17 00:00 98.4 81 18 116/69 (85) 100 06/11/17 22:30 62 06/11/17 20:00 87 06/11/17 20:00 97.5 77 18 119/59 (79) 98 I/O 06/11/17 06/11/17 06/11/17 06/12/17 06/12/17 06/12/17 07:00 15:00 23:00 07:00 15:00 23:00 # Voids 3 3 Result Diagram: 06/11/17 0809 06/11/17 0809 Objective Remarks GENERAL: NAD, A&Ox1 HEAD: Normocephalic. NECK: Supple, trachea midline. No lymphadenopathy. EYES: No scleral icterus. No injection or drainage. CARDIOVASCULAR: Regular rate and rhythm without murmurs, gallops, or rubs. RESPIRATORY: Breath sounds equal bilaterally. No accessory muscle use. GASTROINTESTINAL: Abdomen soft, non-tender, nondistended. MUSCULOSKELETAL: No cyanosis, or edema. SKIN: Warm and dry. NEURO: No focal neurological deficitis. A/P Problem List: (1) CVA (cerebral vascular accident) ICD Code: I63.9 - Cerebral infarction, unspecified (2) UTI (urinary tract infection) ICD Code: N39.0 - Urinary tract infection, site not specified (3) HTN (hypertension) ICD Code: I10 - Essential (primary) hypertension Assessment and Plan 76-year-old female admitted secondary to acute CVA Acute CVA Neurology following No acute surgery needed for her degree of carotid artery stenosis Continue to follow carotid artery stenosis as an outpatient Continue PT Plan for SNF at discharge Dementia Acute encephalopathy Vascular event related encephalopathy is likely etiology Infection could be related to her encephalopathy Urinary tract infection Continue Rocephin Acute kidney injury Continue to monitor renal function Improving through time Hypertension Continue amlodipine DVT prophylaxis Coumadin on hold Resume Coumadin when INR is therapeutic Simon Da Silva MD June 12, 2017 18:50
[2017-06-12 20:00] VITALS: BP 124/52; PULSE 67; RESP 18; TEMP 98.4; O2SAT 98
--- NOTE | 2017-06-12 21:37 | HHI.PR ---
Review/Management Diagnosis left MCA and right [employer]NA[employer] distributions strokes. No evidence of significant carotid artery stenosis on CTA. resume coumadin when INR falls below 3 Diagnosis/Plan: Subjective Subjective Comments No acute events reported Active Medications Current Medications Medications (Trade) Dose Ordered Sig/Tania Route Start Time Stop Time Status Last Admin (Lipitor) 10 mg HS PO 06/08/17 21:00 06/11/17 22:17 (Norvasc) 10 mg DAILY PO 06/09/17 09:00 06/12/17 10:16 (Sandra-Colace) 1 tab BID PRN PO 06/08/17 16:30 06/11/17 08:34 (Coumadin) 5 mg DAILY@1600 PO 06/09/17 16:00 Future Hold 06/10/17 17:40 Ceftriaxone Sodium 1000 mg/ Sodium Chloride 100 ml @ 200 mls/hr Q24H IV 06/08/17 21:00 06/11/17 22:17 (NS Flush) 2 ml BID IV FLUSH 06/09/17 09:00 06/12/17 10:16 (NS Flush) 2 ml UNSCH PRN IV FLUSH 06/09/17 08:15 (NovoLOG SUPPLEMENTAL SCALE) 1 ACHS SQ 06/09/17 12:00 06/10/17 12:43 (D50w (Vial) Inj) 50 ml UNSCH PRN IV PUSH 06/09/17 08:15 (Glucagon Inj) 1 mg UNSCH PRN OTHER 06/09/17 08:15 (Prinivil) 5 mg DAILY PO 06/11/17 15:30 06/12/17 10:16 Allergies Allergies Coded Allergies No Known Allergies (Verified09/13/16) Exam I&O / VS 06/12/17 06/12/17 06/13/17 15:00 23:00 07:00 # Voids 3 Vital Signs Date Time Temp Pulse Resp B/P (MAP) Pulse Ox O2 Delivery O2 Flow Rate FiO2 06/12/17 20:00 98.4 67 18 124/52 (76) 98 06/12/17 16:00 98.2 71 17 110/56 (74) 98 06/12/17 12:00 97.6 94 17 111/57 (75) 99 06/12/17 08:00 97.5 83 17 128/73 (91) 98 06/12/17 04:00 97.3 83 18 138/64 (88) 95 06/12/17 04:00 79 06/12/17 00:00 98.4 81 18 116/69 (85) 100 06/11/17 22:30 62 Exam Comments lethargic but arouses and follow commands. speech dysarthric CN intact MOTOR 4/5 RUE, 5/5 LUE Objective Radiology Results follow up CT --stable Micro and Labs Date/Time Source Procedure Growth Status 06/08/17 18:42 Urine Clean Catch Urine Culture - Final Citrobacter Freundii Complete Conner Valenzuela MD PhD June 12, 2017 21:37
[2017-06-12] MEDS: cefTRIAXone INJ 1,000 MG in SODIUM CHLORIDE 0.9% INJ 100 ML IV SCH (21:43)
[2017-06-12] MEDS: ATORVASTATIN 10 MG TAB PO SCH (21:44)
[2017-06-12] MEDS: DOCUSATE SODIUM 50 MG/SENNA 8.6 MG TAB PO PRN (21:44)
[2017-06-13] VITALS (11 sets, daily range): BP systolic 112–169; BP diastolic 55–79; PULSE 80–99; RESP 18–20; TEMP 97.8–98.4; O2SAT 93–100
[2017-06-13 05:26] LABS: AUTOMATED NEUTROPHIL # 6.4 TH/MM3 (1.8-7.7); BASOPHIL # 0.1 TH/MM3 (0-0.2); BASOPHIL % 0.8 % (0.0-2.0); EOSINOPHIL # 0.5 TH/MM3 (0-0.4); EOSINOPHIL % 5.1 % (0.0-4.0); HEMATOCRIT 36.6 % (35.0-46.0); HEMOGLOBIN 12.6 GM/DL (11.6-15.3); LYMPH % 18.1 % (9.0-44.0); LYMPHOCYTE # 1.7 TH/MM3 (1.0-4.8); MEAN CELL VOLUME 85.2 FL (80.0-100.0); MEAN CORPUSCULAR HEMOGLOBIN 29.3 PG (27.0-34.0); MEAN CORPUSCULAR HGB CONC 34.4 % (32.0-36.0); MEAN PLATELET VOLUME 9.1 FL (7.0-11.0); MONO % 6.3 % (0.0-8.0); MONOCYTE # 0.6 TH/MM3 (0-0.9); NEUT % 69.7 % (16.0-70.0); PLATELET COUNT 183 TH/MM3 (150-450); RED CELL DISTRIBUTION WIDTH 13.4 % (11.6-17.2); WHITE BLOOD COUNT 9.2 TH/MM3 (4.0-11.0)
[2017-06-13 05:30] LABS: INTERNATIONAL NORMALIZED RATIO 3.2 RATIO; PROTHROMBIN TIME - PATIENT 32.1 SEC (9.8-11.6)
[2017-06-13 05:51] LABS: ALBUMIN 3.1 GM/DL (3.4-5.0); ALKALINE PHOSPHATASE 106 U/L (45-117); ALT (GPT) 29 U/L (10-53); AST (GOT) 38 U/L (15-37); BLOOD UREA NITROGEN 32 MG/DL (7-18); CALCIUM 8.7 MG/DL (8.5-10.1); CHLORIDE 109 MEQ/L (98-107); CREATININE 1.04 MG/DL (0.50-1.00); GLOMERULAR FILTRATION RATE 51 ML/MIN (>89); GLUCOSE,RANDOM 85 MG/DL (74-106); SODIUM (NA) 142 MEQ/L (136-145); TOTAL BILIRUBIN ADULT 0.2 MG/DL (0.2-1.0)
[2017-06-13] MEDS: INSULIN ASPART SUPPLEMENTAL SCALE SQ SCH ×3 (08:00→21:00)
[2017-06-13] MEDS: SODIUM CHLORIDE 0.9% FLUSH 10 ML FLUSH IV FLUSH SCH ×2 (09:11→21:00)
[2017-06-13] MEDS: LISINOPRIL 5 MG TAB PO SCH (09:11)
[2017-06-13] MEDS ORDERED: LIPI10TA PO (10:08)
[2017-06-13] MEDS ORDERED: COUM2.5T PO (10:08)
[2017-06-13] MEDS ORDERED: LISI-519 PO (10:08)
--- NOTE | 2017-06-13 14:19 | HHI.DS ---
Discharge Summary Admission Date Jun 08, 2017 at 18:00 Discharge Date: June 13, 2017 Admitting Diagnosis acute ischemic CVA, AMS (1) CVA (cerebral vascular accident) ICD Code: I63.9 - Cerebral infarction, unspecified Diagnosis: Principal (2) Encephalopathy ICD Code: G93.40 - Encephalopathy, unspecified Diagnosis: Principal (3) UTI (urinary tract infection) ICD Code: N39.0 - Urinary tract infection, site not specified Diagnosis: Principal (4) Renal insufficiency ICD Code: N28.9 - Disorder of kidney and ureter, unspecified Diagnosis: Secondary (5) HTN (hypertension) ICD Code: I10 - Essential (primary) hypertension Diagnosis: Secondary Procedures None Brief History - From Admission This is a 76-year-old female with a PMH of HTN, CAD, COPD, Tobacco Abuse and Dementia who was referred to ER by her Neurologist, Dr. Rizzo, for abnormal outpatient MRI Brain. Pt unable to provide much history due to significant confusion. Per records, pt has been following w/ Dr. Rizzo for progressive weakness, gait instability and confusion, however has unfortunately cancelled multiple appointments. Outpatient MRI Brain 06/06/17 showing acute right occipital and acute left MCA strokes. She was sent to the ER for admission/ anticoagulation. Pt largely unaware as to why she's here. States "they say I can't walk, but I can". On arrival, BP 132/70, HR 100, O2 sat 98% RA, Afebrile. WBC 12.1. Creatinine 1.21, previously 0.64 on 09/14/2016. Troponin negative. INR 1.0. UA positive for UTI. Carotid US diffuse atherosclerotic plaque of both carotid arteries with hemodynamically significant narrowing in both ICAs, potentially occluded right vertebral artery. CBC/BMP: 06/13/17 0503 06/13/17 0503 Significant Findings Laboratory Tests Test 06/11/17 08:09 06/13/17 05:03 Prothrombin Time 39.5 SEC (9.8-11.6) 32.1 SEC (9.8-11.6) Blood Urea Nitrogen 19 MG/DL (7-18) 32 MG/DL (7-18) Potassium Level 3.3 MEQ/L (3.5-5.1) Chloride Level 108 MEQ/L (98-107) 109 MEQ/L (98-107) Estimat Glomerular Filtration Rate 66 ML/MIN (>89) 51 ML/MIN (>89) Eosinophils (%) (Auto) 5.1 % (0.0-4.0) Eosinophils # (Auto) 0.5 TH/MM3 (0-0.4) Creatinine 1.04 MG/DL (0.50-1.00) Albumin 3.1 GM/DL (3.4-5.0) Aspartate Amino Transf (AST/SGOT) 38 U/L (15-37) PE at Discharge GENERAL: This is a well-nourished, well-developed patient, in no apparent distress. CARDIOVASCULAR: Normal rate and regular rhythm without murmurs, gallops, or rubs. RESPIRATORY: Good respiratory efforts. Breath sounds equal and clear to auscultation bilaterally. GASTROINTESTINAL: Abdomen soft, non-tender, non-distended. Normal active bowel sounds MUSCULOSKELETAL: Extremities without cyanosis, or edema. NEURO: Alert & Oriented x4 to person, place, time, situation. 4+ out of 5 right upper and lower extremities. Generalized weakness. PSYCH: Appropriate mood and affect. Hospital Course Mrs. Toledo is a 76-year-old female. She is admitted secondary to acute CVA. This was combined global weakness and encephalopathy. Urinary tract infection is present may have been contributory to encephalopathy. She is treated with Rocephin for 5 days and has completed treatment today. Stroke symptoms are improving the patient will need to continue rehab at a longterm facility. She has Coumadin started here per neurology recommendations. Original treatment caused her to have hypertherapeutic INR. This is improving at this point. Medically clear and stable for transition to longterm facility with monitoring of INR in 1 week. Pt Condition on Discharge: Stable Discharge Disposition: Discharge to SNF Discharge Time: > 30 minutes Discharge Instructions DIET: Follow Instructions for: As Tolerated, No Restrictions Activities you can perform: Regular-No Restrictions Follow up Referrals: PCP Follow-up - 2 Weeks New Medications: Warfarin (Coumadin) 2.5 Mg Tab 2.5 MG PO DAILY for Prevent Blood Clot, #30 TAB 0 Refills Atorvastatin (Lipitor) 10 Mg Tab 10 MG PO HS for Cholesterol Management, #30 TAB Lisinopril (Lisinopril) 5 Mg Tab 5 MG PO DAILY for Blood Pressure Management, #30 TAB Continued Medications: Amlodipine (Norvasc) 10 Mg Tab 10 MG PO DAILY for 30 Days, TAB Carbidopa-Levodopa (Sinemet) 25-100 Mg Tab 1 TAB PO Q8HR for Parkinson Disease Mgmt, #90 TAB 0 Refills Memantine (Namenda) 10 Mg Tab 10 MG PO BID for Alzheimer Disease, #30 TAB 0 Refills Simon Da Silva MD June 13, 2017 14:19
[2017-06-13] MEDS: ATORVASTATIN 10 MG TAB PO SCH (20:38)
[2017-06-13] MEDS: cefTRIAXone INJ 1,000 MG in SODIUM CHLORIDE 0.9% INJ 100 ML IV SCH (20:41)
[2017-06-14] VITALS (8 sets, daily range): BP systolic 104–141; BP diastolic 52–74; PULSE 69–102; RESP 18–20; TEMP 97.5–98.3; O2SAT 96–100
[2017-06-14] MEDS: INSULIN ASPART SUPPLEMENTAL SCALE SQ SCH ×4 (08:00→21:00)
[2017-06-14] MEDS: LISINOPRIL 5 MG TAB PO SCH (08:58)
[2017-06-14] MEDS: SODIUM CHLORIDE 0.9% FLUSH 10 ML FLUSH IV FLUSH SCH ×2 (08:59→21:19)
[2017-06-14 09:48] LABS: INTERNATIONAL NORMALIZED RATIO 1.9 RATIO; PROTHROMBIN TIME - PATIENT 19.4 SEC (9.8-11.6)
--- NOTE | 2017-06-14 12:06 | HHI.PR ---
Subjective Remarks INR is at 1.9 today. Coumadin will be resumed at 2.5 mg instead of 5 mg daily. Patient is cleared for discharge to [facility] facility yesterday. Objective Vital Signs Date Time Temp Pulse Resp B/P (MAP) Pulse Ox O2 Delivery O2 Flow Rate FiO2 06/14/17 11:35 98.2 89 20 104/52 (69) 100 06/14/17 08:14 98.0 86 20 140/74 (96) 97 06/14/17 04:00 97.6 75 18 141/62 (88) 96 06/13/17 23:42 98.0 95 18 139/74 (95) 97 06/13/17 20:29 97.8 91 18 133/64 (87) 98 06/13/17 16:18 98.1 85 20 115/55 (75) 95 I/O 06/13/17 06/13/17 06/13/17 06/14/17 06/14/17 06/14/17 07:00 15:00 23:00 07:00 15:00 23:00 Intake Total 100 ml Balance 100 ml Intake IV Total 100 ml # Voids 2 Result Diagram: 06/13/17 0503 06/13/17 0503 Objective Remarks GENERAL: NAD, A&Ox1 HEAD: Normocephalic. NECK: Supple, trachea midline. No lymphadenopathy. EYES: No scleral icterus. No injection or drainage. CARDIOVASCULAR: Regular rate and rhythm without murmurs, gallops, or rubs. RESPIRATORY: Breath sounds equal bilaterally. No accessory muscle use. GASTROINTESTINAL: Abdomen soft, non-tender, nondistended. MUSCULOSKELETAL: No cyanosis, or edema. SKIN: Warm and dry. NEURO: No focal neurological deficitis. A/P Problem List: (1) CVA (cerebral vascular accident) ICD Code: I63.9 - Cerebral infarction, unspecified (2) UTI (urinary tract infection) ICD Code: N39.0 - Urinary tract infection, site not specified (3) HTN (hypertension) ICD Code: I10 - Essential (primary) hypertension Assessment and Plan 76-year-old female admitted secondary to acute CVA Coumadin resumed and will be continued at 2.5 mg daily as an outpatient. Patient is medically cleared for discharge yesterday. Discharge will occur when arrangements are completed. Acute CVA Neurology following No acute surgery needed for her degree of carotid artery stenosis Continue to follow carotid artery stenosis as an outpatient Continue PT Plan for SNF at discharge Dementia Acute encephalopathy Vascular event related encephalopathy is likely etiology Infection could be related to her encephalopathy Urinary tract infection Continue Rocephin Acute kidney injury Continue to monitor renal function Improving through time Hypertension Continue amlodipine DVT prophylaxis Coumadin on hold Resume Coumadin when INR is therapeutic Simon Da Silva MD June 14, 2017 12:06
[2017-06-14] MEDS ORDERED: LACTULOSE SYRUP 20 GM/30 ML CUP PO PRN (14:45)
[2017-06-14] MEDS ORDERED: WARFARIN SOD 2.5 MG TAB PO SCH (16:00)
[2017-06-14] MEDS: DOCUSATE SODIUM 50 MG/SENNA 8.6 MG TAB PO PRN (16:43)
[2017-06-14] MEDS: ATORVASTATIN 10 MG TAB PO SCH (21:19)
[2017-06-14] MEDS: cefTRIAXone INJ 1,000 MG in SODIUM CHLORIDE 0.9% INJ 100 ML IV SCH (23:15)
[2017-06-15] VITALS: BP 145/61; PULSE 84; PULSE 86; RESP 20; TEMP 98.4; O2SAT 98
[2017-06-15 04:00] VITALS: BP 119/74; PULSE 93; RESP 20; TEMP 98.4; O2SAT 96
[2017-06-15 08:00] VITALS: BP 145/70; PULSE 74; RESP 18; TEMP 98; O2SAT 96
[2017-06-15] MEDS: INSULIN ASPART SUPPLEMENTAL SCALE SQ SCH (08:00)
[2017-06-15] MEDS: SODIUM CHLORIDE 0.9% FLUSH 10 ML FLUSH IV FLUSH SCH (09:00)
[2017-06-15] MEDS: LISINOPRIL 5 MG TAB PO SCH (09:52)
--- NOTE | 2017-06-15 14:11 | HHI.PR ---
Subjective Remarks care home facility is available today. Transport occurring today. Objective Vital Signs Date Time Temp Pulse Resp B/P (MAP) Pulse Ox O2 Delivery O2 Flow Rate FiO2 06/15/17 08:00 98.0 74 18 145/70 (95) 96 06/15/17 04:00 98.4 93 20 119/74 (89) 96 06/15/17 00:00 86 06/15/17 00:00 98.4 84 20 145/61 (89) 98 06/14/17 20:00 97.5 92 18 140/63 (88) 98 06/14/17 20:00 87 06/14/17 16:03 98.3 86 20 141/59 (86) 96 06/14/17 16:00 69 I/O 06/14/17 06/14/17 06/14/17 06/15/17 06/15/17 06/15/17 07:00 15:00 23:00 07:00 15:00 23:00 Intake Total 720 ml 320 ml Balance 720 ml 320 ml Intake Oral 720 ml 220 ml IV Total 100 ml # Voids 3 2 # Bowel Movements 2 1 Result Diagram: 06/13/17 0503 06/13/17 0503 Objective Remarks GENERAL: NAD, A&Ox1 HEAD: Normocephalic. NECK: Supple, trachea midline. No lymphadenopathy. EYES: No scleral icterus. No injection or drainage. CARDIOVASCULAR: Regular rate and rhythm without murmurs, gallops, or rubs. RESPIRATORY: Breath sounds equal bilaterally. No accessory muscle use. GASTROINTESTINAL: Abdomen soft, non-tender, nondistended. MUSCULOSKELETAL: No cyanosis, or edema. SKIN: Warm and dry. NEURO: No focal neurological deficitis. A/P Problem List: (1) CVA (cerebral vascular accident) ICD Code: I63.9 - Cerebral infarction, unspecified (2) UTI (urinary tract infection) ICD Code: N39.0 - Urinary tract infection, site not specified (3) HTN (hypertension) ICD Code: I10 - Essential (primary) hypertension Assessment and Plan 76-year-old female admitted secondary to acute CVA Discharge to half-way facility will occur today as facility available. Acute CVA Neurology following No acute surgery needed for her degree of carotid artery stenosis Continue to follow carotid artery stenosis as an outpatient Continue PT Plan for SNF at discharge Dementia Acute encephalopathy Vascular event related encephalopathy is likely etiology Infection could be related to her encephalopathy Urinary tract infection Continue Rocephin Acute kidney injury Continue to monitor renal function Improving through time Hypertension Continue amlodipine DVT prophylaxis Coumadin on hold Resume Coumadin when INR is therapeutic Simon Da Silva MD June 15, 2017 14:11
== END 2017-06-15 11:51 | DRG 64 ==
LOC: NEPC 14:47 → NEDA 18:00 → N05B 20:52
PROVIDERS: ADMIT Hospitalist; ATTEND Hospitalist
DX: I63.412 Cerebral infarction due to embolism of left middle cerebral artery (principal); G93.40 Encephalopathy, unspecified; N39.0 Urinary tract infection, site not specified; F03.90 Unspecified dementia, unspecified severity, without behavioral disturbance, psychotic disturbance, mood disturbance, and anxiety; I63.49 Cerebral infarction due to embolism of other cerebral artery; B96.89 Other specified bacterial agents as the cause of diseases classified elsewhere; J44.9 Chronic obstructive pulmonary disease, unspecified; I10 Essential (primary) hypertension; N28.9 Disorder of kidney and ureter, unspecified; I25.10 Atherosclerotic heart disease of native coronary artery without angina pectoris; Z95.5 Presence of coronary angioplasty implant and graft; I65.23 Occlusion and stenosis of bilateral carotid arteries; Z91.19 Patient's noncompliance with other medical treatment and regimen; R26.2 Difficulty in walking, not elsewhere classified; Z87.891 Personal history of nicotine dependence
CPT/HCPCS: 70450; 70496; 70498; 70544; 70548; 80048; 80053; 80061; 81001; 82550; 82948; 83036; 83735; 84100; 84439; 84443; 84484; 85025; 85027; 85610; 85730; 87077; 87086; 87186; 93005; 93225; 93226; 93306; 93880; 94150; 96372; A9579; J0696; J1644; J1815; J7030; Q9967